=== PATIENT | female | born 1930 | race Caucasian/White ===

== ENCOUNTER 2016-10-03 16:44 | Inpatient (IN) ==
--- NOTE | 2016-10-03 17:08 | Emergency Department Note ---
Disposition Clinical Impression: NSTEMI (non-ST elevated myocardial infarction) Disposition: Admitted As Inpatient Condition: Fair Referrals: Lo Hooper CNP [Advanced Practice Nurse] - Forms: ED Satisfaction Letter Time of Disposition: 19:10 Weakness HPI - General Chief complaint: ED Weakness Stated complaint: weakness Time Seen by Provider: 10/03/16 16:49 Source: patient Limitations: no limitations Nursing Notes Reviewed: Yes Vital Signs Reviewed: Yes - History of Present Illness HPI Narrative: 86 year old female presents with a PMH significant for HTN presents today via ambulance for a 2 week history of generalized weakness. Patient is a poor historian. She states that she has also had dull left sided scapular pain. She states that her weakness is intermittent and that it is worse with exertion and relieved with rest. Occasionally she gets lightheaded but denies LOC. She has never felt like this previously. Denies SOB, chest pain, abdominal pain, anorexia, dysuria, fevers N/V/D. Pt Subjective Complaint: generalized weakness/fatigue Onset (ago): week(s) Duration: gradually worsening Location: generalized Migration: none Pain Severity: none Pain Scale: 4 Improves with: none Worsens with: exertion Associated symptoms: Denies: chest pain, diaphoresis, dysuria, fever/chills, nausea/vomiting, shortness of breath - Related Data Home Medications Medication Instructions Recorded Confirmed Atenolol [Tenormin] 12.5 mg PO DAILY 10/03/16 10/03/16 Multivitamin [Multi-Day Vitamins] 1 each PO DAILY 10/03/16 10/03/16 Allergies Allergy/AdvReac Type Severity Reaction Status Date / Time Amoxicillin Allergy Hives Verified 10/03/16 16:47 All systems ED: reviewed and negative except as stated. Past Medical History - Past Medical History Attestation: Yes The following information was validated with the patient. Source: patient Medical history: Reports: hypertension, other Psychiatric history: Reports: no psych history - Social History Smoking Status: Never smoker Alcohol use: Reports: none Drug use: Reports: unknown Physical Exam - General Limitations: no limitations General appearance: alert, in no apparent distress - Head Head exam: atraumatic, normocephalic, normal inspection - Eye Eye exam: Present: normal appearance, PERRL, EOMI - ENT ENT exam: normal exam, normal oropharynx, mucous membranes moist - Neck Neck exam: Present: normal inspection, full ROM, trachea midline - Chest Chest inspection: Present: normal inspection, symmetric chest wall rise - Respiratory Respiratory exam: Present: normal lung sounds bilaterally - Cardiovascular Cardiovascular exam: Present: regular rate, normal rhythm, normal heart sounds - Abdominal Exam Abdominal exam: Present: soft, Non-Tender. Absent: tenderness, distention, guarding, rebound, rigidity - Extremities Exam Extremities exam: Present: normal inspection, full ROM. Absent: tenderness, pedal edema - Back Exam Back exam: Present: normal inspection, full ROM, tenderness, paraspinal tenderness - Neurological Exam Neurological exam: Present: alert - Psychiatric Psychiatric exam: Present: normal affect, normal mood - Skin Skin exam: Present: warm, dry, intact, normal color Course Course Narrative: Patient seen and examined. Left-sided scapular tenderness as well as generalized weakness. No prior Cardiac history. Cardiopulmonary workup initiated. We will also get a urine analysis. - Reevaluation(s) Reevaluation #1: Troponin elevated at 0.55. 325 mg aspirin ordered. Will admit for NSTEMI. I discussed this patient with the device processing engineer Dr. Cortes . Recommends heparin drip, no Plavix. Coags were added. I spoke with hospitalist Adriana Angeles who has accepted patient for admission. Time: 19:08 Vital Signs Temperature 97.5 F L 10/03/16 16:45 Pulse Rate 75 10/03/16 16:45 Respiratory Rate 18 10/03/16 16:45 Blood Pressure 190/118 10/03/16 16:45 O2 Sat by Pulse Oximetry 98 10/03/16 16:45 Temperature 97.5 F L 10/03/16 16:45 Pulse Rate 75 10/03/16 16:45 Respiratory Rate 18 10/03/16 16:45 Blood Pressure 190/118 10/03/16 16:45 O2 Sat by Pulse Oximetry 99 10/03/16 17:13 Oxygen Delivery Oxygen Delivery Room Air Weakness - Medical Records Medical records reviewed: Yes I reviewed the patient's medical records. - Lab Data Lab results reviewed: Yes I reviewed the patient's lab results. Result diagrams: 10/03/16 17:28 10/03/16 17:28 Lab Results 10/03/16 10/03/16 10/03/16 Range/Units 17:28 17:28 17:28 WBC 6.9 (4.3-11.1) K/mcL RBC 4.30 (3.82-4.97) M/mcL Hgb 12.9 (11.5-15.4) g/dL Hct 41.4 (35.3-44.9) % MCV 96.3 (83.0-100.0) fL MCH 30.0 (28.0-33.3) pg MCHC 31.2 L (31.6-35.5) g/dL RDW 15.3 H (11.5-14.5) % Plt Count 235 (140-400) K/mcL MPV 9.9 (9.4-12.4) fL Immature Gran % 0.1 (0-4) % Seg Neutrophils % 54.3 % Lymphocytes % 38.3 % Monocytes % 6.3 % Eosinophils % 0.9 % Basophils % 0.1 % Neutrophils # 3.7 (1.6-8.9) K/mcL Lymphocytes # 2.6 (0.6-4.6) K/mcL Monocytes # 0.4 (0.0-1.3) K/mcL Eosinophils # 0.1 (0.0-0.6) K/mcL Basophils # 0.0 (0.0-0.2) K/mcL Sodium 139 (136-145) mEq/L Potassium 4.4 (3.5-4.5) mEq/L Chloride 103 (98-109) mEq/L Carbon Dioxide 30 H (19-29) mEq/L BUN 22 H (7-20) mg/dL Creatinine 0.81 (0.57-1.11) mg/dL Est GFR ( Amer) > 60 (> 60) Est GFR (Non-Af Amer) > 60 (> 60) BUN/Creatinine Ratio 27 H (6-26) Glucose 95 (70-99) mg/dL Calculated Osmolality 291 (280-300) Calcium 9.6 (8.6-10.8) mg/dL Phosphorus 3.0 (2.3-4.7) mg/dL Magnesium 1.9 (1.6-2.6) mg/dL Total Bilirubin 1.3 H (0.2-1.2) mg/dL AST 20 (5-34) Units/L ALT 10 (0-55) Units/L Alkaline Phosphatase 69 (38-126) Units/L Troponin I 0.55 H* (0-0.03) ng/mL Serum Total Protein 8.3 (6.0-8.3) g/dL Albumin 3.4 L (3.5-5.0) g/dL Globulin 4.9 H (2.4-3.5) g/dL Albumin/Globulin Ratio 0.7 L (1.1-2.2) TSH 3.792 (0.350-4.840) mcIU/mL - Radiology Data Radiology results reviewed: Yes I reviewed the patient's radiology results. Chest X-Ray 10/03/16 17:05 IMPRESSION: COPD with no acute abnormality. D/ / 10/03/2016 17:23:17 Daniel Barber MD / chaim Interpreting Provider: Daniel Barber MD - EKG Data EKG attestation: Yes I reviewed and interpreted this EKG. EKG results narrative: EKG done at 1642 shows normal sinus rhythm with a rate of 75 bpm. Mild J-point elevation noted in V2. Mild ST depression noted in 2, 3, aVF, V4 through the thighs. No axis. This appears unchanged from prior EKG done 01/24/2013. EKG done at 1808 shows normal sinus rhythm with a rate of 69 bpm. Mild J-point elevation noted in V2. Mild ST depression noted in V4 and V5, 2, 3, aVF. Attestation Statement - Attestation Attestation: I personally interviewed and examined this patient and my medical decision- making was reviewed with the Resident Physician, Dr. Farrell. I agree with the documented findings, disposition and treatment plan as described except to the extent set forth below. Patient is an 86-year-old white female who presents to emergency department today brought by family for concern for overwhelming generalized weakness but then worse with exertion and stating that she "just feels bad". Patient's very vague with her symptoms but she does complain of some dull aching that she feels over her left scapula. She denies any anterior chest pain pressure or heaviness, no diaphoresis, no shortness of breath, no abdominal pain or flank pain, no lightheadedness or syncope. Patient denies any prior cardiac history and actually denies any medical problems at all. Patient is in no acute distress on arrival and is hypertensive on arrival. I agree with patient's physical exam findings as documented. Patient's EKG showed no acute ischemic changes. Patient was connected to monitoring analyst and continuous pulse ox IV saline while established she was given aspirin and labs were obtained as well as chest x-ray. Patient's lab results we were notified by the lab as her troponin was significantly elevated at 0.55. Patient with normal renal function, normal H& H. Chest x-ray shows no acute process. Repeat EKG shows borderline ischemia in the lateral leads. No evidence of ST elevation. Patient again denies any chest pain but is complaining of the left scapular pain. Based on findings we contact cardiology case was discussed with Dr. Lazaro who recommends aspirin and heparin and will consult on the patient. We will speak with the hospitalist and the patient admitted for further evaluation and treatment. Patient's blood pressure improved at this time.
[2016-10-03 17:34] LABS: Basophils % 0.1 %; Eosinophils # 0.1 K/mcL (0.0-0.6); Eosinophils % 0.9 %; Hematocrit 41.4 % (35.3-44.9); Hemoglobin 12.9 g/dL (11.5-15.4); Immature Granulocytes % 0.1 % (0-4); Lymphocytes # 2.6 K/mcL (0.6-4.6); Lymphocytes % 38.3 %; Mean Corpuscular HGB Conc 31.2 g/dL (31.6-35.5); Mean Corpuscular Volume 96.3 fL (83.0-100.0); Mean Platelet Volume 9.9 fL (9.4-12.4); Monocytes # 0.4 K/mcL (0.0-1.3); Monocytes % 6.3 %; Neutrophils # 3.7 K/mcL (1.6-8.9); Platelet Count 235 K/mcL (140-400); Red Cell Distribution Width 15.3 % (11.5-14.5); Segmented Neutrophils % 54.3 %
[2016-10-03 17:48] LABS: Alanine Aminotransferase 10 Units/L (0-55); Albumin 3.4 g/dL (3.5-5.0); Albumin/Globulin Ratio 0.7 (1.1-2.2); Alkaline Phosphatase 69 Units/L (38-126); Aspartate Amino Transferase 20 Units/L (5-34); BUN/Creatinine Ratio 27 (6-26); Bilirubin,Total 1.3 mg/dL (0.2-1.2); Blood Urea Nitrogen 22 mg/dL (7-20); Calcium 9.6 mg/dL (8.6-10.8); Carbon Dioxide 30 mEq/L (19-29); Chloride 103 mEq/L (98-109); Globulin 4.9 g/dL (2.4-3.5); Glucose 95 mg/dL (70-99); Magnesium 1.9 mg/dL (1.6-2.6); Osmolality,Calculated 291 (280-300); Potassium 4.4 mEq/L (3.5-4.5); Sodium 139 mEq/L (136-145); Total Protein 8.3 g/dL (6.0-8.3); eGFR For African Americans > 60 (> 60); eGFR For Non-African Americans > 60 (> 60)
[2016-10-03] MEDS ORDERED: Aspirin Enteric Coated 325 MG Tablet PO STA (17:58)
[2016-10-03 18:08] LABS: Thyroid Stimulating Hormone 3.792 mcIU/mL (0.350-4.840)
[2016-10-03] MEDS ORDERED: *HR* Heparin 5,000 UNIT/ML VIAL IVP PRN ×2 (18:26)
[2016-10-03] MEDS ORDERED: *HR* Heparin 5,000 UNIT/ML VIAL IVP ONE (18:26)
[2016-10-03] MEDS ORDERED: Heparin 25,000 UNIT/500 ML D5W 25,000 UNIT/500 ML MLS IVC SCH (18:30)
[2016-10-03 19:03] LABS: INR 1.1; Prothrombin Time 11.9 Seconds (9.4-12.1)
[2016-10-03] MEDS ORDERED: Naloxone 0.4 MG/ML INJ IVP PRN (20:25)
[2016-10-03] MEDS ORDERED: Acetaminophen 325 MG TABLET PO PRN (20:29)
--- NOTE | 2016-10-03 20:31 | Internal Med History&Physical ---
<Jace Campbell - Last Filed: 10/03/16 20:26> Date of Encounter: 10/03/16 Time of Encounter: 20:26 Assessment and Plan (1) NSTEMI (non-ST elevated myocardial infarction) Current visit: Yes Status: Acute Presented fatigue and weakness, EKG showed ST depression in 2,3, AVF, V4. Initial trop 0.55. Cardio consulted in ED and recommended Heparin gtt. ASA given on arrival. Asymptomatic and denies chest pain. Cycle trop, check echo, defer stress test to cardio. Monitor on tele. NPO after Mn in the event of cardio wanting a cath or stress. No known hx of CAD. BNP, Lipid panel, hgba1c pending (2) HTN (hypertension) Current visit: Yes Status: Acute Per hx BP controlled. Continue home medications and titrate PRN. Qualifiers: Hypertension type: essential hypertension Qualified Code(s): I10 - Essential (primary) hypertension (3) Lower back pain Current visit: Yes Status: Acute C/O lower back pain. Patient suspects secondary to ED cot. NO n/t, bowel or bladder incontinence. Trial lidoderm patch period. Consider further imaging/ workup if symptoms persist. Qualifiers: Chronicity: acute Back pain laterality: left Sciatica presence: without sciatica Qualified Code(s): M54.5 - Low back pain (4) DVT prophylaxis Current visit: Yes Status: Acute heparin gtt. Internal Medicine - H&P: HPI Chief complaint: fatigue Admitted From: Home Plans for Post Hospital Care: Home History of present illness: Ms. France is a 86 year old female PMH of HTN; presented to [facility] with cc fatigue and was found to have an NTEMI with a troponin of 0.55. Heparin gtt started in ED and she was admitted for further evaluation. Information obtained from chart review and patient report. Per patient she reports fatigue and dizziness over the past couple of day; non-specific fatigue, no N/V no SOB. Back pain noted; patient thinks it due to cot in ED. Past Med Surg Social Fam HX - Past Medical History Medical history: hypertension, other Psychiatric history: no psych history - Past Surgical History Surgical History: non-contributory - Social History Smoking Status: Never smoker Alcohol use: none Drug use: unknown - Additional Family History Additional family history: reviewed and non contributory Internal Medicine - H&P: Meds Atenolol [Tenormin] 12.5 mg PO DAILY 10/03/16 [History] Multivitamin [Multi-Day Vitamins] 1 each PO DAILY 10/03/16 [History] Allergies Amoxicillin Allergy (Verified 10/03/16 16:47) Hives All Systems PM: A 10-system review of systems was performed and is negative for pertinent findings except as documented above in the HPI. - Constitutional Constitutional: fatigue, weakness, no chills, no fever(s), no night sweats - EENT Eyes: no change in vision, no discharge, no pain, no photophobia Ears: no ear discharge, no ear pain, no tinnitus Nose, mouth and throat: no dysphagia, no nasal discharge, no neck pain, no sore throat - Cardiovascular Cardiovascular ROS IM: no chest pain, no diaphoresis, no dyspnea, no lightheadedness, no palpitations, no syncope - Respiratory Respiratory: no cough, no dyspnea, no wheezing, no excessive phlegm production - Gastrointestinal Gastrointestinal: no abdominal pain, no diarrhea, no hematemesis, no hematochezia, no melena, no nausea, no vomiting - Genitourinary Genitourinary: no change in urinary stream, no dysuria, no flank pain, no hematuria - Musculoskeletal Musculoskeletal ROS IM: back pain, no numbness, no tingling Additional comments: Lower back pain - Integumentary Integumentary IM: no rash, no unusual bruising - Neurological Neurological ROS: no confusion, no convulsions, no focal weakness, no numbness, no tingling, no tremor(s) - Hematologic/Lymphatic Hematologic/Lymphatic: no easy bruising - Constitutional Vitals: Temp Pulse Resp BP Pulse Ox 97.5 F L 57 15 150/84 97 10/03/16 20:16 10/03/16 20:16 10/03/16 20:16 10/03/16 20:16 10/03/16 20:16 - Head Head exam: Present: atraumatic, normocephalic - Eye Eye exam: Present: PERRL, conjuntiva pink, sclera anicteric Pupils: Present: PERRL - Neck Neck exam general surgery: Present: supple, trachea midline. Absent: lymphadenopathy - Respiratory Respiratory exam: Present: CTAB. Absent: accessory muscle use, rales, rhonchi, wheezes - Cardiovascular Cardiovascular exam: Present: RRR, +S1, +S2. Absent: diastolic murmur, gallop, rubs, systolic murmur - GI/Abdominal GI/Abdominal exam: Present: normal bowel sounds, soft, no peritoneal signs. Absent: distended, tenderness - Extremities Exam Extremities exam: Present: warm, radial pulses palpable and symetrical. Absent : calf tenderness, cyanotic, pedal edema - Neurological Exam Neurological exam: Present: CN II-XII intact, oriented X3, no focal deficits. Absent: pronater drift, facial droop, speech deficit - Skin Skin exam: Present: dry, intact Internal Med - H&P Results - Labs CBC & Chem 7: 10/03/16 17:28 10/03/16 17:28 <Thomas Sheldon - Last Filed: 10/04/16 03:33> Date of Encounter: 10/03/16 Internal Medicine - H&P: HPI History of present illness: Ms. France is a 86 year old female Past Med Surg Social Fam HX - Past Medical History Medical history: other (COPD) All Systems PM: A 10-system review of systems was performed and is negative for pertinent findings except as documented above in the HPI. - Constitutional Vitals: Temp Pulse Resp BP Pulse Ox 97.6 F 72 15 126/71 97 10/04/16 00:24 10/04/16 00:24 10/04/16 00:24 10/04/16 00:24 10/04/16 00:24 Internal Med - H&P Results - Labs CBC & Chem 7: 10/03/16 17:28 10/03/16 17:28 Labs: Cardiac Enzymes 10/04/16 Range/Units 00:59 Troponin I 0.73 H* (0-0.03) ng/mL Urine 10/03/16 Range/Units 21:30 Urine Color Yellow (Yellow) Urine Clarity Cloudy A (Clear) Urine pH 7.0 (5.0-8.0) pH Units Ur Specific [place] 1.020 (1.010-1.025) Urine Protein Negative (Neg-Trace) mg/dL Urine Glucose (UA) Normal (Normal) mg/dL - EKG Data -: EKG Interpreted by Myself EKG shows normal: sinus rhythm (the ST changes are imperceptible and arguable) - Diagnostic Studies Chest x-ray Status: image reviewed by me - Attending Attestation I personally interviewed examined this patient and my medical decision-making was reviewed with the Advanced Nurse Practitioner. I agree with the documented findings, disposition and treatment plan as described. Thomas Sheldon MD, MPH Hospitalist
[2016-10-03 21:51] LABS: Bilirubin,Urine Negative (Negative); Blood,Urine Negative (Negative); Clarity,Urine Cloudy (Clear); Color,Urine Yellow (Yellow); Glucose,Urine (UA) Normal (Normal); Ketones,Urine Negative (Negative); Leukocyte Esterase,Urine Small (Negative); Nitrite,Urine Negative (Negative); Protein,Urine Negative (Neg-Trace); Urobilinogen,Urine Normal (Normal)
[2016-10-03 21:53] LABS: Bacteria,Urine None Seen per hpf (None-Few); Hyaline Casts,Urine None Seen per lpf (None-Few); Squamous Epithelial Cell,Urine Many per lpf (None-Few); WBC,Urine 0-3 per hpf (0-3)
[2016-10-03 22:02] LABS: RBC,Urine 0-3 per hpf (0-3)
[2016-10-04] MEDS ORDERED: 0.9 % Sodium Chloride 1,000 ML IVC SCH (00:01)
[2016-10-04 01:35] LABS: Hemoglobin A1C 5.6 %
[2016-10-04 08:33] LABS: Hematocrit 38.9 % (35.3-44.9); Hemoglobin 12.4 g/dL (11.5-15.4); Mean Corpuscular HGB Conc 31.9 g/dL (31.6-35.5); Mean Corpuscular Hemoglobin 30.5 pg (28.0-33.3); Mean Corpuscular Volume 95.8 fL (83.0-100.0); Mean Platelet Volume 9.9 fL (9.4-12.4); Platelet Count 213 K/mcL (140-400); Red Blood Count 4.06 M/mcL (3.82-4.97); Red Cell Distribution Width 15.4 % (11.5-14.5)
[2016-10-04 08:38] LABS: Alanine Aminotransferase 8 Units/L (0-55); Albumin 3.1 g/dL (3.5-5.0); Albumin/Globulin Ratio 0.7 (1.1-2.2); Alkaline Phosphatase 64 Units/L (38-126); Aspartate Amino Transferase 19 Units/L (5-34); BUN/Creatinine Ratio 22 (6-26); Bilirubin,Total 1.5 mg/dL (0.2-1.2); Blood Urea Nitrogen 17 mg/dL (7-20); Calcium 9.1 mg/dL (8.6-10.8); Carbon Dioxide 26 mEq/L (19-29); Chloride 103 mEq/L (98-109); Glucose 90 mg/dL (70-99); Osmolality,Calculated 283 (280-300); Potassium 4.1 mEq/L (3.5-4.5); Total Protein 7.7 g/dL (6.0-8.3); eGFR For African Americans > 60 (> 60); eGFR For Non-African Americans > 60 (> 60)
[2016-10-04 08:39] LABS: Chol/HDL Ratio 4.9 (0-4.9); Cholesterol 191 mg/dL (< 200); Globulin 4.6 g/dL (2.4-3.5); HDL Cholesterol 39 mg/dL (40-59); LDL Cholesterol,Calculated 129 mg/dL (0-99); Sodium 136 mEq/L (136-145); Triglycerides 113 mg/dL (< 150)
--- NOTE | 2016-10-04 09:23 | Electrocardiograph Report ---
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
--- NOTE | 2016-10-04 09:38 | Internal Med Progress Note ---
<Daniel Upton - Last Filed: 10/04/16 13:07> Date of Encounter: 10/04/16 Time of Encounter: 09:32 - Assessment and plan (1) NSTEMI (non-ST elevated myocardial infarction) Current Visit: Yes Status: Acute Assessment and plan: Cards is following. "ekg 2,3, Avf ST depression." trop 0.55, 0.73, 0.66. BNP 220.' echo no abnormal findings. cardio will cath today. CXR no abnormal findings. MACHELLE 4. continue heparin. Start Statin. (2) HTN (hypertension) Current Visit: Yes Status: Acute Assessment and plan: continue home meds. and continue monitor Qualifiers: Hypertension type: essential hypertension Qualified Code(s): I10 - Essential (primary) hypertension (3) Lower back pain Current Visit: Yes Status: Acute Assessment and plan: continue to monitor pain. Qualifiers: Chronicity: acute Back pain laterality: left Sciatica presence: without sciatica Qualified Code(s): M54.5 - Low back pain (4) DVT prophylaxis Current Visit: Yes Status: Acute Assessment and plan: continue heparin - Subjective Interval history: Ms Mills is a 86 year old female on day 1 of admission. She presented with fatigue and weakness, and a feeling of "indigestion". she denies chest pain, diaphoresis. 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 >65, HLD, HTN, Both parents of heart disease, +trops = MACHELLE 4. Patient also has complaints of back pain, she thinks its from the cot. Pain is described as muscle sore pain that started on saturday on the left side. - Constitutional Vitals: Temp Pulse Resp BP Pulse Ox 97.5 F L 63 18 127/72 96 10/04/16 04:09 10/04/16 04:09 10/04/16 04:09 10/04/16 04:09 10/04/16 08:53 General appearance: Present: A&O X 3 - Head Head exam: Present: atraumatic, normocephalic - Respiratory Respiratory exam: Present: CTAB. Absent: accessory muscle use, rales, rhonchi, wheezes - Cardiovascular Cardiovascular exam: Present: RRR, +S1, +S2. Absent: diastolic murmur, gallop, rubs, systolic murmur - GI/Abdominal GI/Abdominal exam: Present: normal bowel sounds, soft, no peritoneal signs. Absent: distended, tenderness - Extremities Exam Extremities exam: Present: radial pulses palpable and symetrical. Absent: pedal edema - Back Exam Additional comments: Lateral Left back below rib cage soreness, no tenderness upon palpation or elicited pain. - Neurological Exam Neurological exam: Present: alert, normal gait, oriented X3 - Skin Skin exam: Present: dry, intact Internal Medicine: Result - Labs CBC & Chem 7: 10/04/16 07:55 10/04/16 07:55 Labs: Short CBC 10/04/16 Range/Units 07:55 WBC 6.7 (4.3-11.1) K/mcL Hgb 12.4 (11.5-15.4) g/dL Hct 38.9 (35.3-44.9) % Plt Count 213 (140-400) K/mcL BMP 10/04/16 07:55 Sodium 136 Potassium 4.1 Chloride 103 Carbon Dioxide 26 BUN 17 Creatinine 0.78 Glucose 90 Calcium 9.1 Cardiac Enzymes 10/04/16 10/04/16 Range/Units 00:59 07:55 Troponin I 0.73 H* 0.66 H* (0-0.03) ng/mL Liver Function 10/04/16 Range/Units 07:55 Total Bilirubin 1.5 H (0.2-1.2) mg/dL AST 19 (5-34) Units/L ALT 8 (0-55) Units/L Alkaline Phosphatase 64 (38-126) Units/L Albumin 3.1 L (3.5-5.0) g/dL Urine 10/03/16 Range/Units 21:30 Urine Color Yellow (Yellow) Urine Clarity Cloudy A (Clear) Urine pH 7.0 (5.0-8.0) pH Units Ur Specific [place] 1.020 (1.010-1.025) Urine Protein Negative (Neg-Trace) mg/dL Urine Glucose (UA) Normal (Normal) mg/dL - ABG Interpretation ABG results: PT/INR, D-dimer PT 11.9 Seconds (9.4-12.1) 10/03/16 17:28 - Impressions Impressions Echocardiogram 10/04/16 20:31 Impressions: Sinus arrhythmia. LVEF 60%. Normal left ventricular size and systolic function. Indeterminate left ventricular diastolic function. Normal right ventricular size and function. Mild mitral regurgitation. Mild tricuspid regurgitation. No pulmonary hypertension. Left Ventricular Wall Motion: Rest Echo Findings All wall segments showed normal motion. Findings: Study Quality * Technically adequate exam. ECG Findings * Normal sinus rhythm and possible sinus arrhythmia. Left Ventricle * LVEF 60%. * Normal LV chamber size, wall thickness and function. * Indeterminate diastolic function. Aorta * Normally sized aortic root. Aortic Valve * No aortic regurgitation. * Trileaflet aortic valve. * Normal aortic valve structure. * No aortic stenosis. Mitral Valve * Normal mitral valve structure. * No mitral stenosis. * Mild mitral regurgitation. Tricuspid Valve * Normal tricuspid valve structure. * Mild tricuspid regurgitation. * Estimated RA pressure is 3 mmHg. * Estimated RVSP is 23 mmHg. * No pulmonary hypertension. Pulmonic Valve * Pulmonic valve is not well visualized. * No pulmonic stenosis. * No pulmonic regurgitation. Pulmonary Artery * Pulmonary artery not well visualized. Left Atrium * Severely dilated left atrium. Right Atrium * Normal right atrial size. Right Ventricle * Normal right ventricular structure and function. Interatrial Septum * No evidence of PFO by color Doppler. Pericardium * There is no pericardial effusion present. IVC * Normal IVC dimensions and inspiratory collapse. Consult Discharge Plan - Plan Referrals: Fernanda Gaines MD [Partnered Physician] - 10/12/16 10:00 am (will be seen by Dr. Pang [facility]) <Mariella Mulliganju T - Last Filed: 10/04/16 16:06> Date of Encounter: 10/04/16 - Constitutional Vitals: Temp Pulse Resp BP Pulse Ox 97.5 F L 70 16 147/78 2 10/04/16 14:50 10/04/16 14:50 10/04/16 14:50 10/04/16 14:50 10/04/16 14:50 Internal Medicine: Result - Labs CBC & Chem 7: 10/04/16 07:55 10/04/16 07:55 Labs: Short CBC 10/04/16 Range/Units 07:55 WBC 6.7 (4.3-11.1) K/mcL Hgb 12.4 (11.5-15.4) g/dL Hct 38.9 (35.3-44.9) % Plt Count 213 (140-400) K/mcL BMP 10/04/16 07:55 Sodium 136 Potassium 4.1 Chloride 103 Carbon Dioxide 26 BUN 17 Creatinine 0.78 Glucose 90 Calcium 9.1 Cardiac Enzymes 10/04/16 10/04/16 Range/Units 00:59 07:55 Troponin I 0.73 H* 0.66 H* (0-0.03) ng/mL Liver Function 10/04/16 Range/Units 07:55 Total Bilirubin 1.5 H (0.2-1.2) mg/dL AST 19 (5-34) Units/L ALT 8 (0-55) Units/L Alkaline Phosphatase 64 (38-126) Units/L Albumin 3.1 L (3.5-5.0) g/dL - ABG Interpretation ABG results: PT/INR, D-dimer PT 11.9 Seconds (9.4-12.1) 10/03/16 17:28 - Impressions Impressions Echocardiogram 10/04/16 20:31 Impressions: Sinus arrhythmia. LVEF 60%. Normal left ventricular size and systolic function. Indeterminate left ventricular diastolic function. Normal right ventricular size and function. Mild mitral regurgitation. Mild tricuspid regurgitation. No pulmonary hypertension. Left Ventricular Wall Motion: Rest Echo Findings All wall segments showed normal motion. Findings: Study Quality * Technically adequate exam. ECG Findings * Normal sinus rhythm and possible sinus arrhythmia. Left Ventricle * LVEF 60%. * Normal LV chamber size, wall thickness and function. * Indeterminate diastolic function. Aorta * Normally sized aortic root. Aortic Valve * No aortic regurgitation. * Trileaflet aortic valve. * Normal aortic valve structure. * No aortic stenosis. Mitral Valve * Normal mitral valve structure. * No mitral stenosis. * Mild mitral regurgitation. Tricuspid Valve * Normal tricuspid valve structure. * Mild tricuspid regurgitation. * Estimated RA pressure is 3 mmHg. * Estimated RVSP is 23 mmHg. * No pulmonary hypertension. Pulmonic Valve * Pulmonic valve is not well visualized. * No pulmonic stenosis. * No pulmonic regurgitation. Pulmonary Artery * Pulmonary artery not well visualized. Left Atrium * Severely dilated left atrium. Right Atrium * Normal right atrial size. Right Ventricle * Normal right ventricular structure and function. Interatrial Septum * No evidence of PFO by color Doppler. Pericardium * There is no pericardial effusion present. IVC * Normal IVC dimensions and inspiratory collapse. - Attending Attestation I examined this patient and my medical decision-making was reviewed with the Resident Physician on 10/04/16. I agree with the documented findings, disposition and treatment plan as described except to the extent set forth below. 86 F,previously healthy, independent of ADLS and IADLS. Admitted and being managed for NSTEMI Seen s/p [facility] with COOPER to OM Denies new complains Still having heart burn Physical exam: VSS, not in any form of distress, laying flat, TAB, HS S1, S1, regularly irregular, no m/g/r, abdomen is being, R wrist dressing clean and dry , radial pulse present, wellperfused R hand, no pedal edema labs and imaging reviewed A/P NSTEMI: Continue DAPT: ECHO with preserved EF, continue Lipitor, ACEI, BB BP is controlled Rest of details as in resident physician's documentation
--- NOTE | 2016-10-04 10:02 | Cardiology Consult Note ---
Date of Encounter: 10/04/16 Time of Encounter: 10:00 Assessment and Plan (1) NSTEMI (non-ST elevated myocardial infarction) Current Visit: Yes Status: Acute Troponins 0.55, 0.73, 0.66, associated with weakness/fatigue and intermittent left sided mid back pain over the past 2 days. Troponin elevation also in setting of accelerated hypertension on presentation with BP 190/118, now improved. UA also reveals small amount of leuk. esterase with culture pending. On heparin gtt, Statin and BB. EKG shows ST depression in leads III and aVF. NSTEMI vs. demand ischemia. Echo shows EF 60% with normal wall motion. Discussed options of LHC vs. medical management. R/B/A to both discussed. Pt and family prefer to proceed with LHC to further evaluate. LHC today. Continue to follow. (2) HTN (hypertension) Current Visit: Yes Status: Acute Elevated on admission 190/118, now improved. Continue Atenolol, adjust/add antihypertensives as necessary. Qualifiers: Hypertension type: essential hypertension Qualified Code(s): I10 - Essential (primary) hypertension Discussion w patient/family: The assessment and plan as outlined above was discussed with the patient and/or family members who expressed understanding and agreement. All questions were answered. Thank you for involving us in the care of your patient. Please call with any questions. I will discuss all the above with Dr. Ibrahima Lazaro and make changes as necessary. History of Present Illness Consult date: 10/04/16 Requesting physician: Thomas Sheldon Consult reason: NSTEMI Chief complaint: fatigue, weakness, back pain History of present illness: Ms. France is a 86 year old female with PMH of HTN; presented to [facility] with cc fatigue and was found to have elevated troponins--0.55, 0.73, 0.66 Per patient she reports fatigue and dizziness over the past couple of day along with left sided mid back pain that has been intermittent. No cardiac hx. Denies chest pain. Echo resulted--EF 60%, normal wall motion, mild MR/TR. BP was 190/118 on admission, now improved. Reports being active, does all her own cleaning and cooking. Past Med Surg Social Fam HX - Past Medical History Medical history: hypertension, other (COPD) Psychiatric history: no psych history - Past Surgical History Surgical History: non-contributory - Social History Smoking Status: Never smoker Smokeless Tobacco Status: No Alcohol use: none Drug use: unknown Medications and Allergies Atenolol [Tenormin] 12.5 mg PO DAILY 10/03/16 [History] Multivitamin [Multi-Day Vitamins] 1 each PO DAILY 10/03/16 [History] Allergies Amoxicillin Allergy (Verified 10/03/16 16:47) Hives All Systems Review: A 10-system review of systems was performed and is negative for pertinent findings except as documented above in the HPI. - Constitutional Constitutional: fatigue, weakness - Cardiovascular Cardiovascular: as per HPI Physical Examination Vital Signs, Last 4 Hours Pulse Ox 10/04/16 08:53 96 Vital Signs Temp Pulse Resp BP Pulse Ox 10/04/16 08:53 96 10/04/16 04:09 97.5 F L 63 18 127/72 98 10/04/16 00:24 97.6 F 72 15 126/71 97 10/03/16 20:16 97.5 F L 57 15 150/84 97 10/03/16 19:42 18 139/103 10/03/16 17:13 99 10/03/16 16:45 97.5 F L 75 18 190/118 98 Intake and Output 10/03/16 10/04/16 10/04/16 23:59 07:59 15:59 Intake Total 98 / 98 112 / 112 Output Total 600 / 600 300 / 300 Balance -600 / -600 -202 / -202 112 / 112 Intake: IV Fluids 98 / 98 112 / 112 Heparin 25,000 UNIT/500 98 / 98 112 / 112 ML D5W 25,000 unit In 500 ml @ 12 UNIT/KG/HR 15. 785 mls/hr IVC .Q24H [facility] Rx#:[id number] Output: Urine 600 / 600 300 / 300 Other: Meal NPO Percent of Meal Consumed 0% Stool Characteristics Normal for Patient # Voids 1 Weight 66.1 kg General: Conversant, No Apparent Distress HEENT: Atraumatic, Normocephaly, Mucus Membranes Moist Neck: No JVD, Normal carotid pulses Cardiac: Reg Rate and Rhythm, Normal S1 and S2, No Murmur Lungs: Normal Breath Sounds, No Wheeze, Rales, Rhonchi Neuro: Alert and responsive, No focal deficits noted Abdomen: Soft, Non-Tender Skin: No rashes noted on visualized skin Musculoskeletal: No Chest Wall Tenderness Extremities: No Clubbing, No Cyanosis, No Edema, Normal Pulses Results 10/04/16 07:55 10/04/16 07:55 Lab Results 10/04/16 10/04/16 10/04/16 00:59 00:59 07:55 WBC 6.7 Hgb 12.4 Hct 38.9 Plt Count 213 APTT 68.5 H D Sodium Potassium Chloride Carbon Dioxide BUN Creatinine Glucose Calcium Total Bilirubin AST ALT Alkaline Phosphatase Troponin I 0.73 H* B-Natriuretic Peptide 10/04/16 10/04/16 10/04/16 07:55 07:55 07:55 WBC Hgb Hct Plt Count APTT Sodium 136 Potassium 4.1 Chloride 103 Carbon Dioxide 26 BUN 17 Creatinine 0.78 Glucose 90 Calcium 9.1 Total Bilirubin 1.5 H AST 19 ALT 8 Alkaline Phosphatase 64 Troponin I 0.66 H* B-Natriuretic Peptide 220 H 10/04/16 07:55 WBC Hgb Hct Plt Count APTT 70.9 H Sodium Potassium Chloride Carbon Dioxide BUN Creatinine Glucose Calcium Total Bilirubin AST ALT Alkaline Phosphatase Troponin I B-Natriuretic Peptide Impressions Chest X-Ray 10/03/16 17:05 IMPRESSION: COPD with no acute abnormality. D/ / 10/03/2016 17:23:17 Daniel Barber MD / chaim Interpreting Provider: Danile Barber MD Echocardiogram 10/04/16 20:31 Impressions: Sinus arrhythmia. LVEF 60%. Normal left ventricular size and systolic function. Indeterminate left ventricular diastolic function. Normal right ventricular size and function. Mild mitral regurgitation. Mild tricuspid regurgitation. No pulmonary hypertension. Left Ventricular Wall Motion: Rest Echo Findings All wall segments showed normal motion. Findings: Study Quality * Technically adequate exam. ECG Findings * Normal sinus rhythm and possible sinus arrhythmia. Left Ventricle * LVEF 60%. * Normal LV chamber size, wall thickness and function. * Indeterminate diastolic function. Aorta * Normally sized aortic root. Aortic Valve * No aortic regurgitation. * Trileaflet aortic valve. * Normal aortic valve structure. * No aortic stenosis. Mitral Valve * Normal mitral valve structure. * No mitral stenosis. * Mild mitral regurgitation. Tricuspid Valve * Normal tricuspid valve structure. * Mild tricuspid regurgitation. * Estimated RA pressure is 3 mmHg. * Estimated RVSP is 23 mmHg. * No pulmonary hypertension. Pulmonic Valve * Pulmonic valve is not well visualized. * No pulmonic stenosis. * No pulmonic regurgitation. Pulmonary Artery * Pulmonary artery not well visualized. Left Atrium * Severely dilated left atrium. Right Atrium * Normal right atrial size. Right Ventricle * Normal right ventricular structure and function. Interatrial Septum * No evidence of PFO by color Doppler. Pericardium * There is no pericardial effusion present. IVC * Normal IVC dimensions and inspiratory collapse. Active Medications Acetaminophen (Tylenol) 650 mg PO Q6HR PRN PRN Reason: Mild Pain (1-3) Stop: 04/04/17 20:30 Atenolol (Tenormin) 12.5 mg PO DAILY TEN Stop: 04/05/17 09:01 Last Admin: 10/04/16 08:46 Dose: 12.5 mg Atorvastatin Calcium (Lipitor) 80 mg PO HS TEN Stop: 04/05/17 21:01 Calcium Carbonate (Tums) 1,000 mg PO Q4HR PRN; Protocol PRN Reason: Heartburn Stop: 04/04/17 21:31 Last Admin: 10/03/16 22:24 Dose: 1,000 mg Heparin Sodium (Porcine) (Heparin) 3,900 unit 60 unit/kg (3900 unit) IVP Q6HR PRN PRN Reason: SEE COMMENTS Stop: 04/04/17 18:27 Heparin Sodium (Porcine) (Heparin) 2,000 unit 30 unit/kg (2000 unit) IVP Q6H PRN PRN Reason: SEE COMMENTS Stop: 04/04/17 18:27 Heparin Sodium/Dextrose (Heparin 25,000 Unit/500 Ml D5w) 25,000 unit in 500 mls @ 15.785 mls/hr IVC .Q24H TEN; 12 UNIT/KG/HR PRN Reason: Protocol Stop: 04/04/17 18:31 Last Titration: 10/04/16 08:42 Dose: 11.99 unit/kg/hr, 15.785 mls/hr Sodium Chloride (0.9 % Sodium Chloride) 1,000 mls @ 50 mls/hr IVC .Q20H TEN Stop: 04/05/17 00:02 Last Admin: 10/04/16 00:14 Dose: 50 mls/hr Lidocaine HCl (Lidoderm 5% Patch) 1 each TP DAILY TEN Stop: 04/05/17 09:01 Last Admin: 10/04/16 08:50 Dose: 1 each Naloxone HCl (Narcan) 0.4 mg IVP Q2MIN PRN PRN Reason: Opioid Reversal Stop: 04/04/17 20:26 - Imaging and Cardiology Echo: report reviewed - EKG Interpretation EKG results cardiology: personally reviewed (Sinus arrhythmic, ST changes in leads III and aVF), other (12 hr tele AVG HR 67, sinus arrhythmia.) Consult Discharge Plan - Plan Referrals: Lo Hooper [facility] [Primary Care Provider] - (web request sent on 10/04/16 )
--- NOTE | 2016-10-04 10:18 | Pre-Sedation Evaluation ---
Pre-sedation evaluation - Pre-sedation checklist Date of procedure: 10/04/16 Procedure: Heart Cath Recent Vitals: Last Vital Signs Temp 97.5 F L 10/04/16 04:09 Pulse 63 10/04/16 04:09 Resp 18 10/04/16 04:09 BP 127/72 10/04/16 04:09 Pulse Ox 96 10/04/16 08:53 H&P (including ROS) documented in medical record: Yes Previous reaction to sedatives/anesthetics: No Dietary Status: NPO after Midnight Dentition: dentures removed ASA Classification *see protocol: CLASS II-Mild systemic disease Plan of Care: Pt appropriate candidate for procedure/moderate/conscious sedation , Risks/benefits of procedure/sedation discussed w/ patient/family
[2016-10-04] MEDS ORDERED: Heparin 1,000 UNITS/500 mL NS 500 ML ONE (10:29)
[2016-10-04] MEDS ORDERED: *HR* Heparin 10,000 UNIT/10 ML VIAL ONE (10:29)
[2016-10-04] MEDS ORDERED: Nitroglycerin 1,000 MCG/10 ML VIAL IV ONE ×2 (10:29→10:32)
[2016-10-04] MEDS ORDERED: 0.9 % Sodium Chloride 1,000 ML ONE ×2 (10:29→10:30)
[2016-10-04] MEDS ORDERED: Verapamil 5 MG/2 ML VIAL ONE (10:30)
[2016-10-04] MEDS ORDERED: *HR* Midazolam HCl 2 MG/2 ML VIAL ONE (10:51)
[2016-10-04] MEDS ORDERED: *HR* FentaNYL (PF) 100 MCG/2 ML VIAL ONE (10:52)
[2016-10-04] MEDS ORDERED: Tirofiban 5 MG/100ML 5 MG/100 ML BAG IV ONE (11:21)
[2016-10-04] MEDS ORDERED: Tirofiban 12.5 MG/250ML 12.5 MG/250 ML BAG IVC SCH (11:45)
--- NOTE | 2016-10-04 14:47 | Invasive Diagnostic Lab ---
Name: Lina France Date of Study: 10/04/2016 Date: 1930 Ht: 160.0 cm /63.0 in Medical Record#: [id number] Age: 86 Wt: 66. 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 Recommendations: Optimal medical therapy of patient's disease. Aggressive risk factor modification. Patient being referred for cardiac rehab. History/Risk Factors: NSTEMI Hypertension Procedure Access obtained in the right Femoral artery by percutaneous puncture Patient had successful PTCA/Drug-Eluting Stent placement in the OM. Complications: None, None Contrast: Isovue 109ml Closure Device: Manual Compression, sheath to be pulled in holding room when appropriate Hemodynamics: Pressures Site Systolic/ A Wave Diastolic/ V Wave End Diastolic/ Mean HR AO 105 51 74 52 AO 97 55 76 66 LV 96 11 22 60 AO 95 43 66 59 AO 95 45 66 57 AO 89 45 65 60 AO 91 46 66 59 LV Ventriculography Ejection Method: LV Gram Ejection Fraction: 65% Wall Motion: LOPEZ Anterobasal Normal Anterolateral Normal Apical: Normal Inferoapical Normal Inferobasal Normal Coronary Dominance: right Lesion Findings/Interventions * Left Main Coronary Artery There is a 40% stenosis in the LMCA. * Left Anterior Descending There is a 60% stenosis in the Proximal LAD. There is a 70% stenosis in the Mid LAD with mid distal LAD small and diffusely diseased. * Circumflex There is a 28 mm long, 99% stenosis in the 1st Marginal. The lesion has a MACHELLE flow of 2. An intervention was performed on the 1st Marginal with a final stenosis of 0%. There were no lesion complications. The final MACHELLE flow was 3. * Right Coronary Artery There is a 50% stenosis in the Proximal RCA. There is a 50% stenosis in the Distal RCA. Interventional Device(s) Vessel Segment Type Name Diameter (mm) Length (mm) 1st Marginal Balloon Emerge Monorail 2 20 1st Marginal Drug Eluting Stent Synergy 2.25 28 Updated by Elisa Guan RN on 10/04/2016 1:58:53 PM Slim Arredondo MD, FACC electronically signed on 10/04/2016 2:42:07 PM with status of Final
[2016-10-04] MEDS: Aspirin Enteric Coated 81 MG Tablet PO SCH (15:07)
--- NOTE | 2016-10-04 15:07 | Invasive Diagnostic Lab Proc ---
Name: Lina France Date of Study: 10/04/2016 Date: 1930 Ht: 63.0in Medical Record#: [id number] Age: 86 Wt: 145.51lb Gender: Female BSA: 1.69 Order #: [id number] BMI: 25.78 Physicians Procedure Physician: Slim Arredondo MD, FACC Referring MD: Lo Hooper, MAYTE Referring MD: Staff Name Position Time In Gerry Ayers RT (R) Scrub 10:55 AM Francisca Rayo RN Turbinated Bone Grinder 10:55 AM Joleen Bo RN 10:55 AM Joleen Bo RN Turbinated Bone Grinder 10:56 AM Zia Mckeon RN Monitor 10:56 AM Elisa Curry RN 10:56 AM Elisa Curry RN Monitor 10:56 AM Indications Indication Non-Stemi Procedures Performed Procedure L HRT ARTERY/VENTRICLE ANGIO PRQ CARD BM STENT W/ANGIO 1 VSL Pre-Procedure Checklist Informed consent is complete signed and on chart. H&P is on chart. ID band is on and ID verified with patient. Patient NPO for procedure The procedure was described for the patient and questions were answered. Blood Pressure: 158/100 ECG is on chart. Rhythm: Sinus Arrhythmia Plan of Care Patient will tolerate the procedure without complications. Adequate level of comfort will be maintained. Hemodynamics will remain stable Patient will recover from procedure without complications. Respiratory function will be maintained. Cardiac rhythm will remain stable. Patient temperature will be maintained. Patient and/or family have verbalized understanding of the procedure. Patient Education Chief Complaint/Reason for Test: Cardiac Cath Developmental Category: Geriatric (65+ years) Developmentally Appropriate for Age: Yes Learning Barriers: None Education Needs: Procedure Education Method: Verbal Information Taught: Cardiac Cath Educational Evaluation: Able to repeat information Intravenous Access Time IV Size Location DC'd Fluid/Drip Rate Units RN 10:53 AM 20g 1 1/4" Peripheral-Lock On Arrival Rt Arm 0.9NaCl 25 mls/hr Sugey Lewis RT (R) Allergies Amoxicillin Clarithromycin PENICILLINS BIAXIN,AMOXICILLIN Penicillin SULFA (sulfonamide) Vital Signs Time BP (mmHg) HR (bpm) O2 Sat. RR (bpm) LOC 10:57 AM / % 5 = Fully awake and oriented or at pre-proc level 10:30 AM 127 / 72 63 96 % 5 = Fully awake and oriented or at pre-proc level 10:57 AM / % 4 = Oriented but drowsy 11:12 AM / % 4 = Oriented but drowsy 10:51 AM 158 / 100 65 99 % 16 10:57 AM 165 / 82 68 100 % 15 11:02 AM 163 / 76 55 99 % 14 11:07 AM 146 / 84 54 100 % 18 11:12 AM 128 / 63 80 99 % 12 11:16 AM 111 / 63 68 94 % 16 11:21 AM 100 / 64 59 94 % 16 11:26 AM 107 / 59 59 98 % 14 11:31 AM 105 / 57 52 96 % 22 11:37 AM 129 / 72 58 98 % 13 11:45 AM 141 / 91 59 100 % 16 5 = Fully awake and oriented or at pre-proc level 12:00 PM 144 / 71 50 99 % 16 5 = Fully awake and oriented or at pre-proc level 12:15 PM 146 / 69 52 99 % 16 5 = Fully awake and oriented or at pre-proc level 12:30 PM 169 / 101 50 100 % 16 5 = Fully awake and oriented or at pre-proc level 12:45 PM 159 / 80 51 100 % 16 5 = Fully awake and oriented or at pre-proc level 01:00 PM 166 / 102 50 100 % 16 5 = Fully awake and oriented or at pre-proc level 01:15 PM 155 / 83 62 100 % 16 5 = Fully awake and oriented or at pre-proc level 01:30 PM 152 / 83 56 100 % 18 5 = Fully awake and oriented or at pre-proc level 01:45 PM 147 / 80 52 100 % 18 5 = Fully awake and oriented or at pre-proc level 02:00 PM 152 / 84 53 100 % 16 5 = Fully awake and oriented or at pre-proc level Procedural Medications Time Medication Dose Units Method Given By 10:58 AM Oxygen 2 L/min nasal cannula Joleen Bo RN 10:58 AM Versed 2 mg Intravenous Joleen Bo RN 10:58 AM Fentanyl 50 mcg Intravenous Joleen Bo RN 11:04 AM Lidocaine 2% 1 ml Subcutaneous Slim Arredondo MD, FACC 11:08 AM Lidocaine 2% 14 ml Subcutaneous Slim Arredondo MD, FACC 11:21 AM Heparin 3000 units Intravenous Joleen Bo RN 11:23 AM Oxygen 4 L/min nasal cannula Joleen Bo RN 11:24 AM Oxygen 6 L/min nasal cannula Francisca Rayo RN 11:24 AM Aggrastat Bolus: 25 ml Intravenous Joleen Bo RN 11:26 AM Aggrastat 5mg/100ml 6 ml Intravenous Joleen Bo RN 11:27 AM Nitroglycerin 50 mcg Intracoronary Slim Arredondo MD ASA Classification: CLASS II- Mild systemic disease (i.e. well-controlled diabetes, hypertension, asthma, cigarette smoking) Felice Score Preprocedure Postprocedure Activity 2- Moves 4 extremities sustained head lift Activity 2- Moves 4 extremities sustained head lift Circulation 2- SBP +/= 20 points of pre-anesthetic level Circulation 2- SBP +/= 20 points of pre-anesthetic level Consciousness 2- Awake and alert oriented x 3 Consciousness 2- Awake and alert oriented x 3 O2 Saturation 2- Able to maintain O2 satruation of 92% on room air O2 Saturation 2- Able to maintain O2 satruation of 92% on room air Respiratory 2- Able to deep breathe and cough well Respiratory 2- Able to deep breathe and cough well Total Score 10 Total Score 10 Contrast Agent: Isovue Diagnostic Contrast: 109 ml Total Contrast: 109 ml Fluoro Dose: 216 mGy Activated Clotting Time Time Seconds to Clot 11:21 AM 147 11:41 AM 259 12:50 PM 191 01:50 PM 176 Procedure Log Time Note Enter By 10:35 AM CathStat 10:51 AM Pt arrived to hospital laboratory technician 2 at 10:51 [facility] 10:51 AM Vitals capture started with the following parameters, Patient=Adult, Interval=5 min, Initial Zpklidoy=168 mmHg, Deflation Rate=5 mmHg, Cuff placed on Right Arm 10:51 AM HR=65 bpm, GTZN=640/100 mmhg, SpO2=99.0 %, Resp=16 B/min, Comment=sr 10:52 AM [facility] 10[facility] Dutch and darrel completed [facility] 10:52 AM Sign in performed according to hospital policy. [email or web address] 10:53 AM Procedure start 10:53 [facility] 10[facility] AM Gerry Ayers (R) Position: Scrub Time in: 10:55 allan 10:55 AM Francisca Rayo RN Position: Turbinated Bone Grinder Time in: 10:55 [facility] 10[facility] AM Joleen Bo RN Position: Turbinated Bone Grinder Time in: 10:56 [facility] 10:56 AM Zia Mckeon RN Position: Monitor Time in: 10:56 [facility] 10:56 AM Elisa Curry RN Position: Monitor Time in: 10:56 [facility] 10:56 AM Patient charges- Angio tray pack, Navilyst 3mm J, Pulse Oximetry and ACIST tubing and transducer [facility] 10:57 AM HR=68 bpm, LFOK=487/82 mmhg, RyK2=663.0 %, Resp=15 B/min, Comment=sr 10:57 AM Case Delayed no, inpatient [facility] 10:57 AM ASA Class CLASS II- Mild systemic disease (i.e. well-controlled diabetes, hypertension, asthma, cigarette smoking) [facility] :57 AM Time: 10:57 Patient comfortable and pain free: Yes [facility] :57 AM Time: :57LOC: 5 = Fully awake and oriented or at pre-proc level [facility] 10:58 AM Time: 10:58 Oxygen on at 2 L/min per nasal cannula by Joleen Bo RN [facility] 10:58 AM Time: 10:58 Versed 2 mg Intravenous Given by Joleen Bo RN [facility] 10:58 AM Pressure channel 1 zeroed. 10:58 AM Time: 10:58 Fentanyl 50 mcg Intravenous Given by Joleen Bo RN [facility] 10:59 AM Hair removed from procedure site in holding area using clippers. Rt wrist, rt groin prepped with Chloraprep by Gerry Ayers (R), then patient was draped. Skin intact. [facility] 11:02 AM HR=55 bpm, FFAY=282/76 mmhg, SpO2=99.0 %, Resp=14 B/min, Comment=sb 11:02 AM Clinical Presentation: Non-STEMI [facility] 11:04 AM Time out performed according to hospital policy [facility] 11:04 AM Time: 11:04 1 ml Lidocaine 2% to right radial Subcutaneous Given by Slim Arredondo MD, [facility] 11:05 AM Recorded ECG: HR=67 Condition=Condition 1 11:06 AM Unsuccessful access attempt # 1 into the right Radial artery. Manual pressure applied to achieve hemostasis.. jcallihan 11:07 AM HR=54 bpm, AJFX=957/84 mmhg, XmA3=075.0 %, Resp=18 B/min 11:07 AM Unsuccessful access attempt # 2 into the right Radial artery. Manual pressure applied to achieve hemostasis.. jcallihan 11:10 AM Time: 11:08 14 ml Lidocaine 2% to right groin Subcutaneous Given by Slim Arredondo MD, [facility] jcallihan 11:12 AM HR=80 bpm, DCHK=963/63 mmhg, SpO2=99.0 %, Resp=12 B/min, Comment=sr 11:12 AM Access obtained by percutaneous puncture. 6Fr 11cm Terumo Glidesheath sheath placed in right Femoral artery. [id number] jcallihan 11:12 AM 5Fr FL 4 catheter inserted over the wire [facility] AM Time: 10:57LOC: 4 = Oriented but drowsy jcallihan 11:12 AM Time: 10:57 Patient comfortable and pain free: Yes jcallihan 11:13 AM Recorded Pressure: Ao, HR=52, Condition=Condition 1 (Aorta) Ao 105/51/74 11:13 AM LCA angiography performed in multiple views. jcallihan 11:14 AM Lesion found in 1st Marginal. Pre Stenosis: 99 Pre MACHELLE Flow: 2: Partial Flow/Perfusion (> 1 but < 3) jcallihan 11:15 AM Catheter removed jcallihan 11:15 AM 5Fr FR 4 catheter inserted over the wire [facility] 11:15 AM RCA angiography performed in multiple views. jcallihan 11:16 AM Recorded Pressure: Ao, HR=66, Condition=Condition 1 (Aorta) Ao 97/55/76 11:16 AM Coronary Dominance: right jcallihan 11:16 AM Catheter removed jcallan 11:16 AM Lesion found in Proximal RCA. Pre Stenosis: 50 Pre MACHELLE Flow: jcallihan 11:16 AM HR=68 bpm, PSKU=318/63 mmhg, SpO2=94.0 %, Resp=16 B/min, Comment=sr 11:17 AM Lesion found in Distal RCA. Pre Stenosis: 50 Pre MACHELLE Flow: jcallihan 11:17 AM 5Fr Pigtail catheter inserted over the wire [facility] jcallihan 11:17 AM Catheter selectively placed in left ventricle jcallihan 11:17 AM Recorded Pressure: LV, HR=60, Condition=Condition 1 (Left Ventricle) LV 96//22 11:18 AM Bolus angiogram of left Ventricle complete: 10 ml/sec for a total of 20 mls jcallihan 11:18 AM [facility] 11[facility] AM PCI Status Urgent jcallihan 11:18 AM PCI Indication: PCI for high risk Non-STEMI or unstable angina jcallan 11:19 AM .[address] [place] 190cm guide wire across target lesion- successful. reused? No jcallan 11:19 AM Inflation device was opened. jcallihan 11:20 AM Lesion found in Proximal LAD. Pre Stenosis: 60 Pre MACHELLE Flow: jcallan 11:20 AM Lesion found in Mid LAD. Pre Stenosis: 70 Pre MACHELLE Flow: allan 11:21 AM 6Fr EBU 3.5 Medtronic guide catheter was used to cannulate the PCI vessel successfully. reused? No jcallan 11: AM At 11:21 the ACT was 147 seconds. allan 11:21 AM HR=59 bpm, CHOE=266/64 mmhg, SpO2=94.0 %, Resp=16 B/min, Comment=sr 11: AM Time: 11: Heparin 3000 units Intravenous Given by Joleen Bo RN [facility] 11: AM Recorded Pressure: Ao, HR=59, Condition=Condition 1 (Aorta) Ao 95/43/66 11:23 AM Lesion found in LMCA. Pre Stenosis: 40 Pre MACHELLE Flow: [facility] 11: AM Time: 11:23 Oxygen on at 4 L/min per nasal cannula by [facility] 11:[facility] AM Time: 11:24 Oxygen on at 6 L/min per nasal cannula by Francisca Rayo RN [facility] 11:24 AM Recorded Pressure: Ao, HR=57, Condition=Condition 1 (Aorta) Ao 95/45/66 11:26 AM Time: 11:24 Aggrastat Bolus: 25 ml Intravenous Given by Joleen Bo RN Barth pump [facility] 11: AM Time: : Aggrastat 5mg/100ml 6 ml Intravenous Given by Joleen Bo RN Barth pump jcallihan 11:26 AM HR=59 bpm, DFVY=435/59 mmhg, SpO2=98.0 %, Resp=14 B/min, Comment=sr 11:27 AM 2.0 mm x 20 mm Emerge Monorail balloon across target lesion- successful. reused? No jcallihan 11:27 AM Balloon inflated @ 10 jasmine for 19 seconds jcallihan 11:27 AM Recorded Pressure: Ao, HR=60, Condition=Condition 1 (Aorta) Ao 89/45/65 11:27 AM Time: 11:27 Nitroglycerin 50 mcg Intracoronary Given by Slim Arredondo MD jcallihan 11:27 AM Time: 11:12 Patient comfortable and pain free: Yes jcallihan 11:28 AM Time: 11:12LOC: 4 = Oriented but drowsy jcallihan 11:30 AM Balloon catheter removed intact. jcallihan 11:30 AM 2.25mm x 28mm Synergy drug-eluting stent across target lesion- successful Lot #[id number] jcallihan 11:31 AM Recorded Pressure: Ao, HR=59, Condition=Condition 1 (Aorta) Ao 91/46/66 11:31 AM HR=52 bpm, RBTS=810/57 mmhg, SpO2=96.0 %, Resp=22 B/min, Comment=sr 11:32 AM Stent deployed @ 11 jasmine for 23 seconds jcallihan 11:32 AM Stent delivery system removed intact. jcallihan 11:34 AM Guide wire removed intact. jcallihan 11:34 AM Guide catheter removed intact. jcallihan 11:35 AM Bolus angiogram of right Femoral complete: 4 ml/sec for a total of 7 mls jcallihan 11:36 AM Procedure completed at 11:36 jcallihan 11:36 AM Sign out completed: Radiation Dose 216 mGy Fluoro Time: 4 Isovue 370 - 200ml contrast 109 ml given by Slim Arredondo MD, FACC. Complications: NoneCardiac Rehab Consult needed: YesConfirmed administered medications: Yes jcallihan 11:36 AM Isovue 370 - 200ml,1 Bottle(s) used. jcallihan 11:36 AM Sheath left in place to be pulled on floor/holding areaV+Pad jcallihan 11:37 AM HR=58 bpm, RJIC=280/72 mmhg, SpO2=98.0 %, Resp=13 B/min, Comment=sr 11:37 AM Post ECG Sinus Arrhythmia jcallihan 11:38 AM Post Blood Pressure 129/72 jcallihan 11:38 AM 11:38 Post Pulses Rt Radial 2+ jcallihan 11:41 AM At 11:41 the ACT was 259 seconds. jcallihan 11:42 AM Patient out of room: 11:42 jcallihan 11:42 AM Family placed in consult room. jcallihan 11:42 AM Report given to Blake TRINIDAD Pt taken to Holding room Room #4. 11:42 jcallihan 11:42 AM Delay to floor Bed availability jcallihan 11:42 AM pt to holding room bed availability, will go back to 2a63 when sheath is pulled jcallihan 11:43 AM Opsite applied jcallihan 01:52 PM Left Main Coronary Artery with 40% stenosis scoates 01:52 PM Proximal Left Anterior Descending Coronary Artery with 60% stenosis. If graft is supplying this territory, 0 % stenosis. scoates 01:52 PM Mid/Distal Left Anterior Descending Coronary Artery and diagonal branches with 70% stenosis. If graft is supplying this area, 0 % stenosis scoates 01:52 PM Circumflex, Obtuse Marginal, Left Posterior Descending, and Left Posterolateral Coronary Arteries with 99 % stenosis. If graft is supplying this area, 0 % stenosis scoates 01:52 PM Right Coronary, Right Posterior Descending Arteries with Right Posterolateral and Acute Marginal branches with 50 % stenosis. If graft is supplying this area, 0 % stenosis scoates 01:56 PM Information taught Cardiac Cath and PCI scoates 01:56 PM Education needs Procedure, Plan of Care, and Responsibilities of Patient in Care scoates 01:56 PM Learning barriers :None scoates 01:56 PM Education Methods Verbal scoates 01:56 PM Education evaluation Able to repeat information scoates 01:56 PM Plavix, Effient or Brilinta given Yes scoates 01:56 PM Complications: None scoates 01:56 PM Fluoro Time: 4 scoates 02:[address] Arredondo aware of ACT 176 per Carole Curry RN. Orders to proceed with sheath pull mprater 02:05 PM Right femoral sheath pulled per Elisa Curry RN. Manual pressure being held. kwitte 02:21 PM Hemostasis obtained to right femoral artery per Elisa Curry RN. Dressing applied with opsite. Patient educated on post sheath pull and instructions. Patient verbalized understanding. itt 02:29 PM Report given to antonieta TRINIDAD Pt taken to Holding room Room #2a63. 14:29 kwitte 02:29 PM Delay to floor Bed availability kwitte 02:30 PM Complications: None kwitte 02:45 PM Patient out of room: 1445 kwitte Complications Complication None None None Hemodynamics Pressures Site Systolic/A Wave Diastolic/V Wave Mean AO 105 51 74 AO 97 55 76 LV 96 11 22 AO 95 43 66 AO 95 45 66 AO 89 45 65 AO 91 46 66 Post Procedure Information Blood Pressure: 129/72 mmHg Rhythm: Sinus Arrhythmia Post procedural instructions were given Closure Device Time Device Success/Fail 10/04/2016 1:43:00 PM Manual Compression, sheath to be pulled in holding room when appropriate Site Checks Time Location Status Staff Sheath In? Note 11:45 AM Rt Wrist No bleeding/ No Hematoma Blake Lewis RN 11:45 AM Rt Groin No bleeding/ No Hematoma Blake Lewis RN 12:00 PM Rt Groin No bleeding/ No Hematoma Coral Hernandez RN 12:00 PM Rt Wrist No bleeding/ No Hematoma Coral Hernandez RN 12:15 PM Rt Groin No bleeding/ No Hematoma Coral Hernandez RN 12:15 PM Rt Wrist No bleeding/ No Hematoma Coral Hernandez RN 12:30 PM Rt Groin No bleeding/ No Hematoma Coral Hernandez RN 12:30 PM Rt Wrist No bleeding/ No Hematoma Coral Hernandez RN 12:45 PM Rt Groin No bleeding/ No Hematoma Coral Hernandez RN 12:45 PM Rt Wrist No bleeding/ No Hematoma Coral Hernandez RN 01:00 PM Rt Groin No bleeding/ No Hematoma Coral Hernandez RN 01:00 PM Rt Wrist No bleeding/ No Hematoma Coral Hernandez RN 01:15 PM Rt Groin No bleeding/ No Hematoma Coral Hernandez RN 01:15 PM Rt Wrist No bleeding/ No Hematoma Coral Hernandez RN 01:30 PM Rt Groin No bleeding/ No Hematoma Coral Hernandez RN 01:30 PM Rt Groin No bleeding/ No Hematoma Blake Lewis RN 01:45 PM Rt Groin No bleeding/ No Hematoma Coral Hernandez RN 02:00 PM Rt Groin No bleeding/ No Hematoma Coral Hernandez RN 02:21 PM Rt Groin No bleeding/ No Hematoma PatricioElisa mcrae RN 02:35 PM Rt Groin No bleeding/ No Hematoma [place], Elisa TRINIDAD Pulses Time Site Pre-Procedure Post-Procedure Note 10/04/2016 10:54:00 AM Bilateral radial 2+ 11:38:00 AM Rt Radial 2+ 10/04/2016 1:00:00 PM Rt Radial 2+ 10/04/2016 1:00:00 PM Bilateral DP & PT 1+ Updated by Blake Lewis RN on 10/04/2016 3:01:10 PM Blake Lewis RN electronically signed on 10/04/2016 3:01:36 PM with status of Final
[2016-10-04] MEDS ORDERED: Famotidine 20 MG TABLET PO SCH (21:00)
[2016-10-05 06:06] LABS: Hematocrit 36.7 % (35.3-44.9); Hemoglobin 11.6 g/dL (11.5-15.4); Mean Corpuscular HGB Conc 31.6 g/dL (31.6-35.5); Mean Corpuscular Hemoglobin 30.3 pg (28.0-33.3); Mean Corpuscular Volume 95.8 fL (83.0-100.0); Mean Platelet Volume 10.1 fL (9.4-12.4); Platelet Count 206 K/mcL (140-400); Red Blood Count 3.83 M/mcL (3.82-4.97); Red Cell Distribution Width 15.5 % (11.5-14.5)
[2016-10-05 06:19] LABS: BUN/Creatinine Ratio 23 (6-26); Blood Urea Nitrogen 18 mg/dL (7-20); Calcium 8.6 mg/dL (8.6-10.8); Carbon Dioxide 25 mEq/L (19-29); Chloride 105 mEq/L (98-109); Glucose 93 mg/dL (70-99); Osmolality,Calculated 286 (280-300); Potassium 4.2 mEq/L (3.5-4.5); Sodium 137 mEq/L (136-145); eGFR For African Americans > 60 (> 60); eGFR For Non-African Americans > 60 (> 60)
--- NOTE | 2016-10-05 07:45 | Electrocardiograph Report ---
[place] [id number] Test Date: 2016-10-03 Pat Name: Lina France Department: 104 Room: 2A Gender: F [employer] Worker: JAZMYNE : 1930 Requested By: Zion Mulligan Order Number: [id number] Reading MD: Slim Arredondo MD Measurements Intervals [place] Rate: 75 P: 66 [place]: 154 QRS: 26 QRSD: 80 T: 2 QT: 378 QTc: 407 Interpretive Statements SINUS RHYTHM WITH MARKED SINUS ARRHYTHMIA Electronically Signed On 10-04-2016 17:42:42 EDT by Slim Arredondo MD
[2016-10-05] MEDS ORDERED: Famotidine 20 MG TABLET PO SCH (09:02)
--- NOTE | 2016-10-05 09:10 | Cardiology Progress Note ---
Date of Encounter: 10/05/16 Time of Encounter: 09:08 Assessment and Plan (1) NSTEMI (non-ST elevated myocardial infarction) Current Visit: Yes Status: Acute Troponins 0.55, 0.73, 0.66. EKG showed ST depression in leads III and aVF. LHC yesterday residual 2 vessel disease. EF 65%. PTCA/COOPER to OM. 60% pLAD stenosis, 70% mid and mid distal LAD disease small and diffusely diseased. 50% pRCA and distal RCA disease, 40% LMCA. Recommend DAPT (ASA and Plavix) uninterrupted x 1 year. Pt verbalizes understanding. Continue BB and Statin. PRN nitro. Echo shows EF 60% with normal wall motion. Right femoral access site healing well. No bleeding or hematoma. Mild ecchymosis noted. Cardiology signing off. Reconsult PRN. Follow-up in 1 week as outpt--will coordinate. (2) HTN (hypertension) Current Visit: Yes Status: Acute Elevated on admission 190/118, now improved. Continue Atenolol, adjust/add antihypertensives as necessary. Qualifiers: Hypertension type: essential hypertension Qualified Code(s): I10 - Essential (primary) hypertension (3) UTI (urinary tract infection) Current Visit: Yes Status: Acute Urine culture grew enterococcus. Management per primary team. Qualifiers: Urinary tract infection type: site unspecified Hematuria presence: without hematuria Qualified Code(s): N39.0 - Urinary tract infection, site not specified Discussion w patient/family: The assessment and plan as outlined above was discussed with the patient and/or family members who expressed understanding and agreement. All questions were answered. Thank you for involving us in the care of your patient. Please call with any questions. I will discuss all the above with Dr. Ibrahima Lazaro and make changes as necessary. Subjective Principal diagnosis: NSTEMI Interval history: S/P LHC yesterday--Residual 2 vessel disease, EF 65%. PTCA/COOPER to OM. There was 60% pLAD stenosis, 70% mid and mid distal LAD which was small and diffusely diseased. 50% pRCA and distal RCA, 40% LMCA. Echo EF 60%, mild MR/TR. Pt denies any complaints today--denies dyspnea, chest pain or back pain. Objective Vital Signs, Last 4 Hours Temp Pulse Resp BP Pulse Ox 10/05/16 06:53 98.1 F 74 14 124/71 96 Vital Signs Temp Pulse Resp BP Pulse Ox 10/05/16 06:53 98.1 F 74 14 124/71 96 10/05/16 04:53 98.2 F 76 16 119/67 94 10/05/16 00:31 98.6 F 65 16 104/61 95 10/04/16 19:46 98.0 F 70 16 113/61 94 10/04/16 18:58 58 96/58 96 10/04/16 17:58 67 16 109/68 100 10/04/16 16:58 63 16 144/76 100 10/04/16 16:29 63 16 122/64 93 10/04/16 16:01 58 16 142/82 100 10/04/16 15:43 55 18 144/83 98 10/04/16 15:29 59 18 129/70 100 10/04/16 15:13 57 16 144/78 100 10/04/16 14:58 97.5 F L 60 16 172/77 100 10/04/16 14:50 97.5 F L 70 16 147/78 2 Intake and Output 10/04/16 10/05/16 10/05/16 23:59 07:59 15:59 Intake Total 799 / 799 Balance 799 / 799 Intake: IV Fluids 439 / 439 0.9 % Sodium Chloride 1, 400 / 400 000 ML @ 50 mls/hr IVC . Q20H TEN Rx#:[id number] Aggrastat 12.5 MG/250 ML 39 / 39 12.5 mg In 250 ml @ 0.15 MCG/KG/MIN 11.898 mls/hr IVC .Q21H1M TEN Rx#: [id number] Oral 360 / 360 Other: Meal Dinner Percent of Meal Consumed 85% # Voids 1 Weight 63.684 kg Patient Weight 10/05/16 23:59 Weight 63.684 kg Vital Signs Temp Pulse Resp BP Pulse Ox 10/05/16 06:53 98.1 F 74 14 124/71 96 10/05/16 04:53 98.2 F 76 16 119/67 94 10/05/16 00:31 98.6 F 65 16 104/61 95 10/04/16 19:46 98.0 F 70 16 113/61 94 10/04/16 18:58 58 96/58 96 10/04/16 17:58 67 16 109/68 100 10/04/16 16:58 63 16 144/76 100 10/04/16 16:29 63 16 122/64 93 10/04/16 16:01 58 16 142/82 100 10/04/16 15:43 55 18 144/83 98 10/04/16 15:29 59 18 129/70 100 10/04/16 15:13 57 16 144/78 100 10/04/16 14:58 97.5 F L 60 16 172/77 100 10/04/16 14:50 97.5 F L 70 16 147/78 2 Intake and Output 10/04/16 10/05/16 10/05/16 23:59 07:59 15:59 Intake Total 799 / 799 Balance 799 / 799 Intake: IV Fluids 439 / 439 0.9 % Sodium Chloride 1, 400 / 400 000 ML @ 50 mls/hr IVC . Q20H TEN Rx#:[id number] Aggrastat 12.5 MG/250 ML 39 / 39 12.5 mg In 250 ml @ 0.15 MCG/KG/MIN 11.898 mls/hr IVC .Q21H1M TEN Rx#: [id number] Oral 360 / 360 Other: Meal Dinner Percent of Meal Consumed 85% # Voids 1 Weight 63.684 kg Patient Weight 10/05/16 23:59 Weight 63.684 kg General: Conversant, No Apparent Distress HEENT: Atraumatic, Normocephaly, Mucus Membranes Moist Neck: No JVD, Normal carotid pulses Cardiac: Reg Rate and Rhythm, Normal S1 and S2, No Murmur Lungs: Normal Breath Sounds, No Wheeze, Rales, Rhonchi Neuro: Alert and responsive, No focal deficits noted Abdomen: Soft, Non-Tender Skin: Other (right femoral access site healing well--no bleeding or hematoma. Mild amount of ecchymosis noted.) Musculoskeletal: No Chest Wall Tenderness Extremities: No Clubbing, No Cyanosis, No Edema, Normal Pulses Results 10/05/16 05:23 10/05/16 05:23 Lab Results 10/05/16 10/05/16 05:23 05:23 WBC 6.8 Hgb 11.6 Hct 36.7 Plt Count 206 Sodium 137 Potassium 4.2 Chloride 105 Carbon Dioxide 25 BUN 18 Creatinine 0.77 Glucose 93 Calcium 8.6 Short CBC 10/05/16 Range/Units 05:23 WBC 6.8 (4.3-11.1) K/mcL Hgb 11.6 (11.5-15.4) g/dL Hct 36.7 (35.3-44.9) % Plt Count 206 (140-400) K/mcL BMP 10/05/16 Range/Units 05:23 Sodium 137 (136-145) mEq/L Potassium 4.2 (3.5-4.5) mEq/L Chloride 105 (98-109) mEq/L Carbon Dioxide 25 (19-29) mEq/L BUN 18 (7-20) mg/dL Creatinine 0.77 (0.57-1.11) mg/dL Glucose 93 (70-99) mg/dL Calcium 8.6 (8.6-10.8) mg/dL Urine 10/03/16 Range/Units 17:05 Urine Color Yellow (Yellow) Urine Clarity Cloudy A (Clear) Urine pH 7.0 (5.0-8.0) pH Units Ur Specific [place] 1.020 (1.010-1.025) Urine Protein Negative (Neg-Trace) mg/dL Urine Glucose (UA) Normal (Normal) mg/dL Impressions Echocardiogram 10/04/16 20:31 Impressions: Sinus arrhythmia. LVEF 60%. Normal left ventricular size and systolic function. Indeterminate left ventricular diastolic function. Normal right ventricular size and function. Mild mitral regurgitation. Mild tricuspid regurgitation. No pulmonary hypertension. Left Ventricular Wall Motion: Rest Echo Findings All wall segments showed normal motion. Findings: Study Quality * Technically adequate exam. ECG Findings * Normal sinus rhythm and possible sinus arrhythmia. Left Ventricle * LVEF 60%. * Normal LV chamber size, wall thickness and function. * Indeterminate diastolic function. Aorta * Normally sized aortic root. Aortic Valve * No aortic regurgitation. * Trileaflet aortic valve. * Normal aortic valve structure. * No aortic stenosis. Mitral Valve * Normal mitral valve structure. * No mitral stenosis. * Mild mitral regurgitation. Tricuspid Valve * Normal tricuspid valve structure. * Mild tricuspid regurgitation. * Estimated RA pressure is 3 mmHg. * Estimated RVSP is 23 mmHg. * No pulmonary hypertension. Pulmonic Valve * Pulmonic valve is not well visualized. * No pulmonic stenosis. * No pulmonic regurgitation. Pulmonary Artery * Pulmonary artery not well visualized. Left Atrium * Severely dilated left atrium. Right Atrium * Normal right atrial size. Right Ventricle * Normal right ventricular structure and function. Interatrial Septum * No evidence of PFO by color Doppler. Pericardium * There is no pericardial effusion present. IVC * Normal IVC dimensions and inspiratory collapse. Active Medications Acetaminophen (Tylenol) 650 mg PO Q6HR PRN PRN Reason: Mild Pain (1-3) Stop: 04/04/17 20:30 Aspirin (Aspirin Ec) 81 mg PO DAILY [facility] Stop: 04/05/17 12:01 Last Admin: 10/04/16 15:07 Dose: 81 mg Atenolol (Tenormin) 12.5 mg PO DAILY [facility] Stop: 04/05/17 09:01 Last Admin: 10/04/16 08:46 Dose: 12.5 mg Atorvastatin Calcium (Lipitor) 40 mg PO HS [facility] Stop: 04/05/17 21:01 Last Admin: 10/04/16 20:53 Dose: 40 mg Calcium Carbonate (Tums) 1,000 mg PO Q4HR PRN; Protocol PRN Reason: Heartburn Stop: 04/04/17 21:31 Last Admin: 10/03/16 22:24 Dose: 1,000 mg Clopidogrel Bisulfate (Plavix) 75 mg PO DAILY [facility] Stop: 04/06/17 09:01 Famotidine (Pepcid) 20 mg PO 0730,1630 TEN PRN Reason: Protocol Stop: 04/06/17 09:03 Lidocaine HCl (Lidoderm 5% Patch) 1 each TP DAILY [facility] Stop: 04/05/17 09:01 Last Admin: 10/04/16 08:50 Dose: 1 each Naloxone HCl (Narcan) 0.4 mg IVP Q2MIN PRN PRN Reason: Opioid Reversal Stop: 04/04/17 20:26 - Imaging and Cardiology Echo: report reviewed Cardiac cath: report reviewed - EKG Interpretation EKG results cardiology: other (12 hr tele AVG HR 68, sinus arrhythmia) Consult Discharge Plan - Plan Referrals: Fernanda Gaines MD [Partnered Physician] - 10/12/16 10:00 am (will be seen by Dr. Pang LIGHT TECHNICIAN)
[2016-10-05] MEDS ORDERED: Nitroglycerin 0.4 MG TAB.SUBL SL PRN (09:27)
[2016-10-05] MEDS: Aspirin Enteric Coated 81 MG Tablet PO SCH (09:38)
--- NOTE | 2016-10-05 10:15 | Discharge Summary ---
<Daniel Upton - Last Filed: 10/05/16 13:32> Date of Encounter: 10/05/16 Time of Encounter: 10:13 - Discharge Diagnosis (1) NSTEMI (non-ST elevated myocardial infarction) Priority: Primary Status: Acute (2) HTN (hypertension) Priority: Secondary Status: Acute Qualifiers: Hypertension type: essential hypertension Qualified Code(s): I10 - Essential (primary) hypertension (3) Lower back pain Priority: Secondary Status: Acute Qualifiers: Chronicity: acute Back pain laterality: left Sciatica presence: without sciatica Qualified Code(s): M54.5 - Low back pain (4) DVT prophylaxis Priority: Secondary Status: Acute - Discharge Medications Prescriptions: Aspirin Enteric Coated [Aspirin EC] 81 mg PO DAILY #30 tab Atorvastatin [Lipitor] 40 mg PO HS #30 tab Clopidogrel [Plavix] 75 mg PO DAILY #90 tablet Clopidogrel [Plavix] 75 mg PO DAILY #30 tablet Home Medications: Multivitamin [Multi-Day Vitamins] 1 each PO DAILY 10/03/16 [History] Aspirin Enteric Coated [Aspirin EC] 81 mg PO DAILY #30 tab 10/05/16 [Rx] Atenolol [Tenormin] 12.5 mg PO DAILY tab 10/05/16 [Rx] Atorvastatin [Lipitor] 40 mg PO HS #30 tab 10/05/16 [Rx] Clopidogrel [Plavix] 75 mg PO DAILY #30 tablet 10/05/16 [Rx] Clopidogrel [Plavix] 75 mg PO DAILY #90 tablet 10/05/16 [Rx] Allergies/Adverse Reactions: Allergies Amoxicillin Allergy (Verified 10/03/16 16:47) Hives Procedures/tests Complete & Pending: Procedures Performed prior 72 hours Category Date Time Status CL Cardiac Catheterization [CL] Routine Tool Carrier 10/04/16 09:59 Completed ECG 12 lead ECG [ECG] Routine Y 10/03/16 16:42 Completed ECG 12 lead ECG [ECG] Routine Y 10/04/16 11:39 Ordered EV echocardiogram Routine Y 10/04/16 20:31 Completed Date of admission: 10/03/16 20:25 Primary care physician: Lo Hooper CNP Consults: 10/04/16 09:32 Consult to Cardiac Rehabilitation-Phase1 [CONS] Routine Comment: Reason for Consult: NSTEMI Call Completed: Yes - Patient Status Disposition: Home, Self-Care Condition: Good - Discharge Instructions Instructions: Myocardial Infarction (DC), Urinary Tract Infection in Women (DC) Follow Up With: Fernanda Gaines MD [Partnered Physician] - 10/12/16 10:00 am (will be seen by Dr. Pang [facility]) - Diet and Activity Diet: low salt diet Hospital course: Ms France is an 86 year old female who was admitted on 10/03/16 due to general weakness, elevated BP of 190/118, and indigestion/centralized back pain. In the ED, serial EKG performed with one reported depressed ST in II, III, aVF, and troponin of 0.55, 0.73, 0.66. Heparin gtt was started in ED. Patient was started on Lipitor, ACEI, BB, and given 1 dose of 325 mg ASA. BP at this time was controlled. Cardiology was consulted, and at this point patient was admitted to the floor. 2D echo showed LVEF 60% and normal chamber size. She received COOPER due to 2 vessel disease without any complications. Patient was observed over night, and remained stable. Patient was discharged with prescription for plavix, ASA 81, Atenolol, and Atorvastatin 40 mg. - Time Spent with Patient Total time spent providing and/or coordinating discharge services: - Constitutional Vitals: Temp Pulse Resp BP Pulse Ox 98.1 F 74 14 124/71 96 10/05/16 06:53 10/05/16 06:53 10/05/16 06:53 10/05/16 06:53 10/05/16 06:53 General appearance: Present: A&O X 3 - Head Head exam: Present: atraumatic, normocephalic - Respiratory Respiratory exam: Present: CTAB. Absent: accessory muscle use, rales, rhonchi, wheezes - Cardiovascular Cardiovascular exam: Present: RRR, +S1, +S2. Absent: diastolic murmur, gallop, rubs, systolic murmur - GI/Abdominal GI/Abdominal exam: Present: normal bowel sounds, soft, no peritoneal signs. Absent: distended, tenderness - Neurological Exam Neurological exam: Present: alert, oriented X3 - Psychiatric Psychiatric exam: Present: normal affect, normal mood - Skin Skin exam: Present: intact <Benigno Soler - Last Filed: 10/05/16 17:31> Date of Encounter: 10/05/16 - Discharge Diagnosis (1) NSTEMI (non-ST elevated myocardial infarction) Status: Acute (2) CAD (coronary artery disease), [place] coronary artery Priority: Primary Status: Chronic Qualifiers: [place] vs. transplanted heart: hughes heart Associated angina: without angina Qualified Code(s): I25.10 - Atherosclerotic heart disease of [place] coronary artery without angina pectoris (3) HTN (hypertension) Status: Chronic Qualifiers: Hypertension type: essential hypertension Qualified Code(s): I10 - Essential (primary) hypertension (4) Lower back pain Status: Chronic Qualifiers: Chronicity: acute Back pain laterality: left Sciatica presence: without sciatica Qualified Code(s): M54.5 - Low back pain Procedures/tests Complete & Pending: Procedures Performed prior 72 hours Category Date Time Status CL Cardiac Catheterization [CL] Routine Tool Carrier 10/04/16 09:59 Completed ECG 12 lead ECG [ECG] Routine Y 10/03/16 16:42 Completed ECG 12 lead ECG [ECG] Routine Y 10/04/16 11:39 Ordered EV echocardiogram Routine Y 10/04/16 20:31 Completed - Notes to Outpatient Provider Pt had urine culture with enterococcus. We felt it was probably a contaminant as UA was not impressive and dirty. She had no symptoms. May need repeated in outpatient. Date of admission: 10/03/16 20:25 Primary care physician: Lo Hooper CNP Consults: 10/04/16 09:32 Consult to Cardiac Rehabilitation-Phase1 [CONS] Routine Comment: Reason for Consult: NSTEMI Call Completed: Yes Hospital course: Ms. France is a 86 year old female - Time Spent with Patient Total time spent providing and/or coordinating discharge services: 39min - Constitutional Vitals: Temp Pulse Resp BP Pulse Ox 98.0 F 67 14 121/63 95 10/05/16 10:55 10/05/16 10:55 10/05/16 10:55 10/05/16 10:55 10/05/16 10:55 - Attending Attestation I examined this patient and my medical decision-making was reviewed with the Resident Physician on 10/05/16. I agree with the documented findings, disposition and treatment plan as described except to the extent set forth below. Ms. [place] has been admitted for acute NSTEMI. She underwent LHC with stent placement. Today she feels well and her vitals are stable. She is afebrile. She is ready for discharge home. Exam Alert. Comfortable Mucus membranes moist Heart reg No wheeze No edema Abd soft Plan D/C home today. ASA/Plavix for 1 year - she was given 2 scripts for Plavix- one short term and one 3 month for mail away.
[2016-10-05 10:57] VITALS: BP 121/63
== END 2016-10-05 11:45 | disposition home or self-care (01) | DRG 247 ==
LOC: 2ANU 16:44 → EMEROO 16:44 → 2ANU 19:50 → SUATTDRO 20:25
PROVIDERS: ADMIT Internal Medicine; ATTEND Internal Medicine

== ENCOUNTER 2016-11-12 19:18 | Inpatient (IN) ==
[2016-11-12] MEDS ORDERED: Ondansetron 4 MG/2 ML VIAL IVP ONE (19:39)
[2016-11-12] MEDS ORDERED: 0.9 % Sodium Chloride 1,000 ML IVC ONE (19:39)
[2016-11-12 20:01] LABS: Bilirubin,Urine Negative (Negative); Blood,Urine Small (Negative); Clarity,Urine Turbid (Clear); Color,Urine Yellow (Yellow); Glucose,Urine (UA) Normal (Normal); Ketones,Urine Negative (Negative); Leukocyte Esterase,Urine Small (Negative); Nitrite,Urine Negative (Negative); Protein,Urine Trace mg/dL (Neg-Trace); Specific Gravity,Urine 1.021 (1.010-1.025); Urobilinogen,Urine Normal (Normal)
[2016-11-12 20:03] LABS: Bacteria,Urine None Seen per hpf (None-Few); Hyaline Casts,Urine None Seen per lpf (None-Few); Squamous Epithelial Cell,Urine Many per lpf (None-Few)
--- NOTE | 2016-11-12 20:19 | Emergency Department Note ---
Disposition Clinical Impression: Small bowel obstruction Disposition: Admitted As Inpatient Condition: Good Referrals: NONE,PCP [Non-Partnered Physician] - Forms: ED Satisfaction Letter, Work/School Release Time of Disposition: 22:28 Abdominal Pain HPI - General Chief Complaint: ED Abdominal Pain Stated Complaint: N/V Time Seen by Provider: 11/12/16 19:39 Source: patient, family Mode of arrival: wheelchair Limitations: no limitations Nursing Notes Reviewed: Yes Vital Signs Reviewed: Yes - History of Present Illness HPI Narrative: 86 year old female who states she has a HX Of diverticulitis which has require colon resection in addition to SBO in the past and has been vomitting about 6-8 time sine 1630 today, non-bloody no bilious. Patient states she is experiencin increased LLQ pain that radiates into the right side of her abdomen and that she feels overall weak. She states that this is very simliar to when she had diveticulitis in the past or her SBO. Patient denies fevers, chest pain, shortness of breaht, UTI symptoms or back pain. Patient states that after having the zofran she feels increasingly better. Abdomnial pain is decsribed as sharp. She has vomited three times on the way to the ED today. She states that she was walking around at the department stores and then started to feel increasingl nauseated and that is when she started to vomit Pain Scale: 7 - Related Data Home Medications Medication Instructions Recorded Confirmed Multivitamin [Multi-Day Vitamins] 1 each PO DAILY 10/03/16 11/12/16 Omeprazole [PriLOSEC] 20 mg PO QPM 11/12/16 11/12/16 Previous Rx's Medication Instructions Recorded Aspirin Enteric Coated [Aspirin EC] 81 mg PO DAILY #30 tab 10/05/16 Atenolol [Tenormin] 12.5 mg PO DAILY tab 10/05/16 Atorvastatin [Lipitor] 40 mg PO HS #30 tab 10/05/16 Clopidogrel [Plavix] 75 mg PO DAILY #90 tablet 10/05/16 Allergies Allergy/AdvReac Type Severity Reaction Status Date / Time Amoxicillin Allergy Hives Verified 11/12/16 19:31 Constitutional: Denies: fever, chills, weakness, weight change Eyes: Denies: eye pain, eye discharge, vision change ENT ED: Denies: ear pain, throat pain, dental pain, hearing loss, epistaxis, congestion, dysphagia Cardiovascular: Denies: chest pain, palpitations, dyspnea on exertion, edema, syncope Respiratory: Denies: cough, dyspnea, wheezes, hemoptysis, stridor Gastrointestinal: Reports: abdominal pain, nausea, vomiting. Denies: diarrhea, constipation, hematemesis, melena, hematochezia Genitourinary: Denies: dysuria, frequency, hematuria, discharge Musculoskeletal: Denies: back pain, neck pain, arthralgia, myalgia Integumentary: Denies: rash, abrasion, lesions Neurological: Denies: headache, weakness, numbness, paresthesias, confusion, abnormal gait, vertigo Psychiatric: Denies: anxiety, depression, suicidal thoughts, homicidal thoughts , auditory hallucinations, visual hallucinations Endocrine: Denies: fatigue Hematological/Lymphatic: Denies: easy bleeding, easy bruising Allergic/Immunologic: Denies: facial swelling, urticaria Abdominal Pain PMH - Past Medical History Medical history: Reports: hyperlipidemia, hypertension, myocardial infarction Female Surgical History: Reports: hysterectomy, other Psychiatric history: Reports: no psych history - Social History Smoking status: Never smoker Alcohol use: Reports: none Drug use: Reports: unknown Physical Exam - General Limitations: no limitations General appearance: alert, in no apparent distress - Head Head exam: atraumatic, normocephalic, normal inspection - Eye Eye exam: Present: normal appearance, PERRL, EOMI - Expanded Eye Exam Pupils: Left: reactive - ENT ENT exam: normal exam, normal oropharynx, mucous membranes moist - Expanded ENT Exam External ear exam: Present: normal external inspection Mouth exam: Present: normal external inspection Teeth exam: Present: normal inspection Throat exam: Present: normal inspection - Neck Neck exam: Present: normal inspection, full ROM, trachea midline - Chest Chest inspection: Present: normal inspection, symmetric chest wall rise - Respiratory Respiratory exam: Present: normal lung sounds bilaterally - Cardiovascular Cardiovascular exam: Present: regular rate, normal rhythm, normal heart sounds - Abdominal Exam Abdominal exam: Present: soft, tenderness, normal bowel sounds. Absent: Non- Tender, distention, guarding, rebound, rigidity, Aceves's sign, Rovsing's sign, tenderness at McBurney's Point, bruit, pulsatile mass Abdominal tenderness: Present: LLQ, mild - Extremities Exam Extremities exam: Present: normal inspection, full ROM. Absent: tenderness, pedal edema - Expanded Upper Extremity Exam Shoulder exam: Present: normal inspection, full ROM Arm exam: Present: normal inspection, full ROM Elbow exam: Present: normal inspection, full ROM Forearm/Wrist exam: Present: normal inspection, full ROM Hand exam: Present: normal inspection, full ROM Vascular exam: Normal: capillary refill, radial pulse - Expanded Lower Extremity Exam Hip/Pelvis exam: Present: normal inspection, full ROM Upper leg exam: Present: normal inspection, full ROM Knee exam: Present: normal inspection, full ROM Lower leg exam: Present: normal inspection, full ROM Ankle exam: Present: normal inspection, full ROM Foot/toe exam: Present: normal inspection, full ROM Neurovascular/Tendon exam: Absent: motor deficit, sensory deficit, tendon deficit - Back Exam Back exam: Present: normal inspection, full ROM. Absent: tenderness - Neurological Exam Neurological exam: Present: alert, oriented X3 - Expanded Neurological Exam Patient oriented to: Present: person, place, time Coma Scale Eye Opening: Spontaneous Coma Scale Motor Response: Obeys Commands Coma Scale Verbal Response: Oriented Coma Scale Total: 15 - Psychiatric Psychiatric exam: Present: normal affect, normal mood - Skin Skin exam: Present: warm, dry, intact, normal color Course Course Narrative: we will do ABCT with rule out diveriticulitis or SBO, zofran/IVF and lab work. - Reevaluation(s) Reevaluation #1: upated patient and family and they are agreeable to plan Time: 22:27 - Consultations Consultation #1: discussed case with Dr. Goodwin and she will see natalya in consult to admission to medicine Time: 22:10 Consultation #2: discused case with Dr. Davis and he accepts patient to his service Time: 22:27 Vital Signs Temperature 98 F 11/12/16 19:25 Pulse Rate 80 11/12/16 19:25 Respiratory Rate 20 11/12/16 19:25 Blood Pressure 161/100 11/12/16 19:25 O2 Sat by Pulse Oximetry 96 11/12/16 19:25 Temperature 98 F 11/12/16 19:25 Pulse Rate 78 11/12/16 21:49 Respiratory Rate 16 11/12/16 21:49 Blood Pressure 145/86 11/12/16 21:49 O2 Sat by Pulse Oximetry 97 11/12/16 21:49 Oxygen Delivery Oxygen Delivery Room Air Abdominal Pain - Lab Data Result diagrams: 11/12/16 20:33 11/12/16 20:33 Lab Results 11/12/16 11/12/16 11/12/16 Range/Units 19:50 20:04 20:33 WBC 9.2 (4.3-11.1) K/mcL RBC 4.15 (3.82-4.97) M/mcL Hgb 12.6 (11.5-15.4) g/dL Hct 39.8 (35.3-44.9) % MCV 95.9 (83.0-100.0) fL MCH 30.4 (28.0-33.3) pg MCHC 31.7 (31.6-35.5) g/dL RDW 15.0 H (11.5-14.5) % Plt Count 208 (140-400) K/mcL MPV 9.6 (9.4-12.4) fL Immature Gran % 0.3 (0-4) % Seg Neutrophils % 86.6 % Lymphocytes % 8.4 % Monocytes % 4.5 % Eosinophils % 0.1 % Basophils % 0.1 % Neutrophils # 8.0 (1.6-8.9) K/mcL Lymphocytes # 0.8 (0.6-4.6) K/mcL Monocytes # 0.4 (0.0-1.3) K/mcL Eosinophils # 0.0 (0.0-0.6) K/mcL Basophils # 0.0 (0.0-0.2) K/mcL Immature Plt Fraction 2.8 (1.1-6.1) % PT (9.4-12.1) Seconds INR APTT (26.0-36.0) Seconds Sodium (136-145) mEq/L Potassium (3.5-4.5) mEq/L Chloride (98-109) mEq/L Carbon Dioxide (19-29) mEq/L BUN (7-20) mg/dL Creatinine (0.57-1.11) mg/dL Est GFR ( Amer) (> 60) Est GFR (Non-Af Amer) (> 60) BUN/Creatinine Ratio (6-26) Glucose (70-99) mg/dL Calculated Osmolality (280-300) Lactic Acid (0.5-2.2) mmol/L Calcium (8.6-10.8) mg/dL Total Bilirubin (0.2-1.2) mg/dL Direct Bilirubin (0.0-0.5) mg/dL Indirect Bilirubin (0.0-1.2) mg/dL AST (5-34) Units/L ALT (0-55) Units/L Alkaline Phosphatase (38-126) Units/L Troponin I (0-0.03) ng/mL Serum Total Protein (6.0-8.3) g/dL Albumin (3.5-5.0) g/dL Globulin (2.4-3.5) g/dL Albumin/Globulin Ratio (1.1-2.2) Lipase (8-78) Units/L Urine Color Yellow (Yellow) Urine Clarity Turbid A (Clear) Urine pH 7.0 (5.0-8.0) pH Units Ur Specific [place] 1.021 (1.010-1.025) Urine Protein Trace (Neg-Trace) mg/dL Urine Glucose (UA) Normal (Normal) mg/dL Urine Ketones Negative (Negative) mg/dL Urine Blood Small H (Negative) Urine Nitrite Negative (Negative) Urine Bilirubin Negative (Negative) Urine Urobilinogen Normal (Normal) mg/dL Ur Leukocyte Esterase Small H (Negative) Urine Microscopic RBC 5-15 H (0-3) per hpf Urine Microscopic WBC 3-5 H (0-3) per hpf Ur Squamous Epith Cells Many H (None-Few) per lpf Urine Bacteria None Seen (None-Few) per hpf Hyaline Casts None Seen (None-Few) per lpf Ur Culture Indicated? YES A (NO) Specimen Rejected Clotted 11/12/16 11/12/16 11/12/16 Range/Units 20:33 20:33 20:33 WBC (4.3-11.1) K/mcL RBC (3.82-4.97) M/mcL Hgb (11.5-15.4) g/dL Hct (35.3-44.9) % MCV (83.0-100.0) fL MCH (28.0-33.3) pg MCHC (31.6-35.5) g/dL RDW (11.5-14.5) % Plt Count (140-400) K/mcL MPV (9.4-12.4) fL Immature Gran % (0-4) % Seg Neutrophils % % Lymphocytes % % Monocytes % % Eosinophils % % Basophils % % Neutrophils # (1.6-8.9) K/mcL Lymphocytes # (0.6-4.6) K/mcL Monocytes # (0.0-1.3) K/mcL Eosinophils # (0.0-0.6) K/mcL Basophils # (0.0-0.2) K/mcL Immature Plt Fraction (1.1-6.1) % PT 12.8 H (9.4-12.1) Seconds INR 1.2 APTT 27.0 (26.0-36.0) Seconds Sodium 137 (136-145) mEq/L Potassium 3.8 (3.5-4.5) mEq/L Chloride 103 (98-109) mEq/L Carbon Dioxide 23 (19-29) mEq/L BUN 15 (7-20) mg/dL Creatinine 0.72 (0.57-1.11) mg/dL Est GFR ( Amer) > 60 (> 60) Est GFR (Non-Af Amer) > 60 (> 60) BUN/Creatinine Ratio 21 (6-26) Glucose 132 H (70-99) mg/dL Calculated Osmolality 287 (280-300) Lactic Acid 1.8 (0.5-2.2) mmol/L Calcium 9.5 (8.6-10.8) mg/dL Total Bilirubin 1.2 (0.2-1.2) mg/dL Direct Bilirubin 0.5 (0.0-0.5) mg/dL Indirect Bilirubin 0.7 (0.0-1.2) mg/dL AST 19 (5-34) Units/L ALT 12 (0-55) Units/L Alkaline Phosphatase 69 (38-126) Units/L Troponin I (0-0.03) ng/mL Serum Total Protein 8.1 (6.0-8.3) g/dL Albumin 3.2 L (3.5-5.0) g/dL Globulin 4.9 H (2.4-3.5) g/dL Albumin/Globulin Ratio 0.7 L (1.1-2.2) Lipase < 10 (8-78) Units/L Urine Color (Yellow) Urine Clarity (Clear) Urine pH (5.0-8.0) pH Units Ur Specific [place] (1.010-1.025) Urine Protein (Neg-Trace) mg/dL Urine Glucose (UA) (Normal) mg/dL Urine Ketones (Negative) mg/dL Urine Blood (Negative) Urine Nitrite (Negative) Urine Bilirubin (Negative) Urine Urobilinogen (Normal) mg/dL Ur Leukocyte Esterase (Negative) Urine Microscopic RBC (0-3) per hpf Urine Microscopic WBC (0-3) per hpf Ur Squamous Epith Cells (None-Few) per lpf Urine Bacteria (None-Few) per hpf Hyaline Casts (None-Few) per lpf Ur Culture Indicated? (NO) Specimen Rejected 11/12/16 Range/Units 20:33 WBC (4.3-11.1) K/mcL RBC (3.82-4.97) M/mcL Hgb (11.5-15.4) g/dL Hct (35.3-44.9) % MCV (83.0-100.0) fL MCH (28.0-33.3) pg MCHC (31.6-35.5) g/dL RDW (11.5-14.5) % Plt Count (140-400) K/mcL MPV (9.4-12.4) fL Immature Gran % (0-4) % Seg Neutrophils % % Lymphocytes % % Monocytes % % Eosinophils % % Basophils % % Neutrophils # (1.6-8.9) K/mcL Lymphocytes # (0.6-4.6) K/mcL Monocytes # (0.0-1.3) K/mcL Eosinophils # (0.0-0.6) K/mcL Basophils # (0.0-0.2) K/mcL Immature Plt Fraction (1.1-6.1) % PT (9.4-12.1) Seconds INR APTT (26.0-36.0) Seconds Sodium (136-145) mEq/L Potassium (3.5-4.5) mEq/L Chloride (98-109) mEq/L Carbon Dioxide (19-29) mEq/L BUN (7-20) mg/dL Creatinine (0.57-1.11) mg/dL Est GFR ( Amer) (> 60) Est GFR (Non-Af Amer) (> 60) BUN/Creatinine Ratio (6-26) Glucose (70-99) mg/dL Calculated Osmolality (280-300) Lactic Acid (0.5-2.2) mmol/L Calcium (8.6-10.8) mg/dL Total Bilirubin (0.2-1.2) mg/dL Direct Bilirubin (0.0-0.5) mg/dL Indirect Bilirubin (0.0-1.2) mg/dL AST (5-34) Units/L ALT (0-55) Units/L Alkaline Phosphatase (38-126) Units/L Troponin I 0.01 (0-0.03) ng/mL Serum Total Protein (6.0-8.3) g/dL Albumin (3.5-5.0) g/dL Globulin (2.4-3.5) g/dL Albumin/Globulin Ratio (1.1-2.2) Lipase (8-78) Units/L Urine Color (Yellow) Urine Clarity (Clear) Urine pH (5.0-8.0) pH Units Ur Specific [place] (1.010-1.025) Urine Protein (Neg-Trace) mg/dL Urine Glucose (UA) (Normal) mg/dL Urine Ketones (Negative) mg/dL Urine Blood (Negative) Urine Nitrite (Negative) Urine Bilirubin (Negative) Urine Urobilinogen (Normal) mg/dL Ur Leukocyte Esterase (Negative) Urine Microscopic RBC (0-3) per hpf Urine Microscopic WBC (0-3) per hpf Ur Squamous Epith Cells (None-Few) per lpf Urine Bacteria (None-Few) per hpf Hyaline Casts (None-Few) per lpf Ur Culture Indicated? (NO) Specimen Rejected - EKG Data EKG attestation: Yes I reviewed and interpreted this EKG. EKG results narrative: NSR with rate of 74. NO STEMI. normal interals. no change from 10/03/16. 193
[2016-11-12 20:41] LABS: Basophils % 0.1 %; Eosinophils % 0.1 %; Hematocrit 39.8 % (35.3-44.9); Hemoglobin 12.6 g/dL (11.5-15.4); Immature Granulocytes % 0.3 % (0-4); Immature Platelets 2.8 % (1.1-6.1); Lymphocytes # 0.8 K/mcL (0.6-4.6); Lymphocytes % 8.4 %; Mean Corpuscular HGB Conc 31.7 g/dL (31.6-35.5); Mean Corpuscular Hemoglobin 30.4 pg (28.0-33.3); Mean Corpuscular Volume 95.9 fL (83.0-100.0); Mean Platelet Volume 9.6 fL (9.4-12.4); Monocytes # 0.4 K/mcL (0.0-1.3); Monocytes % 4.5 %; Platelet Count 208 K/mcL (140-400); Red Blood Count 4.15 M/mcL (3.82-4.97); Segmented Neutrophils % 86.6 %
[2016-11-12 20:53] LABS: INR 1.2; Prothrombin Time 12.8 Seconds (9.4-12.1)
[2016-11-12 20:57] LABS: Alanine Aminotransferase 12 Units/L (0-55); Albumin 3.2 g/dL (3.5-5.0); Albumin/Globulin Ratio 0.7 (1.1-2.2); Alkaline Phosphatase 69 Units/L (38-126); Aspartate Amino Transferase 19 Units/L (5-34); BUN/Creatinine Ratio 21 (6-26); Bilirubin,Direct 0.5 mg/dL (0.0-0.5); Bilirubin,Indirect 0.7 mg/dL (0.0-1.2); Bilirubin,Total 1.2 mg/dL (0.2-1.2); Blood Urea Nitrogen 15 mg/dL (7-20); Calcium 9.5 mg/dL (8.6-10.8); Carbon Dioxide 23 mEq/L (19-29); Chloride 103 mEq/L (98-109); Globulin 4.9 g/dL (2.4-3.5); Glucose 132 mg/dL (70-99); Osmolality,Calculated 287 (280-300); Potassium 3.8 mEq/L (3.5-4.5); Sodium 137 mEq/L (136-145); Total Protein 8.1 g/dL (6.0-8.3); eGFR For African Americans > 60 (> 60); eGFR For Non-African Americans > 60 (> 60)
[2016-11-12 20:58] LABS: Lipase < 10 Units/L (8-78)
--- NOTE | 2016-11-12 23:18 | Internal Med History&Physical ---
Date of Encounter: 11/12/16 Time of Encounter: 23:14 Assessment and Plan (1) Small bowel obstruction Current visit: Yes Status: Acute Conservative management with nothing by mouth, IV fluids. Patient not exhibiting much nausea and vomiting and therefore NGT placement has been on hold Surgery consult in the a.m (2) NSTEMI (non-ST elevated myocardial infarction) Current visit: No Status: Resolved Recent history of stenting suspect drug eluting stent. Continue dual antiplatelet therapy given risk for thrombosis if Plavix and aspirin were discontinued (3) CAD (coronary artery disease), [place] coronary artery Current visit: No Status: Chronic Stable. management above Qualifiers: [place] vs. transplanted heart: [place] heart Associated angina: without angina Qualified Code(s): I25.10 - Atherosclerotic heart disease of [place] coronary artery without angina pectoris (4) HTN (hypertension) Current visit: No Status: Chronic Stable Qualifiers: Hypertension type: essential hypertension Qualified Code(s): I10 - Essential (primary) hypertension Internal Medicine - H&P: HPI Chief complaint: Abdominal pain, nausea, vomiting History of present illness: Ms. France is a 86 year old female who presents with acute onset Abdominal pain , nausea, vomiting. CT imaging found small bowel obstruction. She reports acute onset of left lower quadrant abdominal pain, localized, no radiation, worse pain in her life, 10 out of 10, associated with nausea or emesis described as brownish greenish output 3. She reports having a small bowel movement shortly after 4 PM. She does have a history of colonic resection secondary to diverticular disease. Given the CT findings of small bowel obstruction, ED discussed the case with Dr. Goodwin of general surgery who will consult on the patient tomorrow. Review of medical history confirms history of hypertension, hyperlipidemia. Off note she reports having a "small heart attack" in October 2016 and has been placed on dual antiplatelet therapy for stents at that time. CT/CT abd pelvis w iv no oral IMPRESSION: 1. Findings of acute small bowel obstruction with tapering in the right lower quadrant. This may represent a partial, early complete, or intermittently current obstruction. 2. Stable left adrenal nodule, which is likely benign given lack of interval change since 2012. 3. Colonic diverticulosis. Past Med Surg Social Fam HX - Past Medical History Medical history: hyperlipidemia, hypertension, myocardial infarction Psychiatric history: no psych history - Past Surgical History Surgical History: non-contributory - Social History Smoking Status: Never smoker Smokeless Tobacco Status: No Alcohol use: none Drug use: unknown Internal Medicine - H&P: Meds Multivitamin [Multi-Day Vitamins] 1 each PO DAILY 10/03/16 [History] Aspirin Enteric Coated [Aspirin EC] 81 mg PO DAILY #30 tab 10/05/16 [Rx] Atenolol [Tenormin] 12.5 mg PO DAILY tab 10/05/16 [Rx] Atorvastatin [Lipitor] 40 mg PO HS #30 tab 10/05/16 [Rx] Clopidogrel [Plavix] 75 mg PO DAILY #90 tablet 10/05/16 [Rx] Omeprazole [PriLOSEC] 20 mg PO QPM 11/12/16 [History] 3 Allergy/AdvReac Type Severity Reaction Status Date / Time Amoxicillin Allergy Hives Verified 11/12/16 19:31 All Systems PM: A 10-system review of systems was performed and is negative for pertinent findings except as documented above in the HPI. Review of systems: ROS 14 point review of systems reviewed as best as possible given presentation. Pertinent positive or negative as per HPI or otherwise reviewed as negative - Constitutional Vitals: Temp Pulse Resp BP Pulse Ox 98 F 78 18 143/100 97 11/12/16 19:25 11/12/16 21:49 11/12/16 22:41 11/12/16 22:41 11/12/16 21:49 Exam: General - AAO x 3 Psych - Appropriate affect/speech. No agitation Eyes - ELIZABET. Eye lids intact. No scleral icterus Heart - Sinus. RRR. S1 and S2 present. No added HS/murmurs appreciated. No elevated JVD appreciated. No calf swellings/erythema Lung - Adequate air entry b/l, No crackles/wheezes appreciated GI - left lower quadrant tenderness, no guarding or rigidity. No hepatosplenomegaly/ascites. BS+ - No CVA/suprapubic tenderness or palpable bladder distension Skin - Intact. No rash/petechiae/ecchymosis. Warm extremities MSK - Joints with normal ROM. No joint swellings Internal Med - H&P Results - Labs CBC & Chem 7: 11/12/16 20:33 11/12/16 20:33
[2016-11-12] MEDS ORDERED: Naloxone 0.4 MG/ML INJ IVP PRN (23:23)
[2016-11-13] MEDS: Ringers Solution, Lactated 1,000 ML IVC SCH ×3 (00:03→20:11)
[2016-11-13] MEDS: *HR* Enoxaparin 30 MG/0.3 ML SYRINGE SQ SCH (05:55)
[2016-11-13] MEDS: Pantoprazole 40 MG VIAL IVP SCH (05:55)
[2016-11-13 06:01] LABS: BUN/Creatinine Ratio 22 (6-26); Blood Urea Nitrogen 15 mg/dL (7-20); Calcium 8.6 mg/dL (8.6-10.8); Carbon Dioxide 26 mEq/L (19-29); Chloride 107 mEq/L (98-109); Glucose 86 mg/dL (70-99); Osmolality,Calculated 292 (280-300); Potassium 3.9 mEq/L (3.5-4.5); Sodium 141 mEq/L (136-145); eGFR For African Americans > 60 (> 60); eGFR For Non-African Americans > 60 (> 60)
[2016-11-13 06:04] LABS: Basophils % 0.2 %; Eosinophils # 0.1 K/mcL (0.0-0.6); Eosinophils % 1.9 %; Hematocrit 34.3 % (35.3-44.9); Immature Granulocytes % 0.3 % (0-4); Lymphocytes # 1.4 K/mcL (0.6-4.6); Lymphocytes % 21.7 %; Mean Corpuscular HGB Conc 32.1 g/dL (31.6-35.5); Mean Corpuscular Hemoglobin 31.3 pg (28.0-33.3); Mean Corpuscular Volume 97.7 fL (83.0-100.0); Mean Platelet Volume 9.9 fL (9.4-12.4); Monocytes # 0.6 K/mcL (0.0-1.3); Monocytes % 9.1 %; Neutrophils # 4.3 K/mcL (1.6-8.9); Platelet Count 180 K/mcL (140-400); Red Blood Count 3.51 M/mcL (3.82-4.97); Red Cell Distribution Width 15.3 % (11.5-14.5); Segmented Neutrophils % 66.8 %
[2016-11-13] MEDS: Aspirin Enteric Coated 81 MG Tablet PO SCH (08:37)
--- NOTE | 2016-11-13 08:39 | Internal Med Progress Note ---
<LaurieelishaDerrell cortez - Last Filed: 11/13/16 09:40> Date of Encounter: 11/13/16 Time of Encounter: 08:39 - Assessment and plan (1) Small bowel obstruction Current Visit: Yes Status: Acute Assessment and plan: Patient presented with nausea and vomiting since 16:30pm 11/12/[address] abdomen/pelvis revealed acute sbo in RLQ, stable L adrenal nodule, and colonic diverticulosis without diverticulitis. Patient has not needed NG tube placemen since arrival, nausea and vomiting well controlled with zofran prn. Patient continues to report some mild LLQ pain with deep palpation, uncertain as this does not correlate with the sbo and patient denies constipation or problems related to. Lactic acid 1.8, 1.3 -Surgery consulted -Continue NPO -Zofran prn -May consider advancing to clear liquid diet later today, if tolerated may continue advancing. (2) CAD (coronary artery disease), [place] coronary artery Current Visit: Yes Status: Chronic Assessment and plan: Patient with known history of CAD s/o stent placement in October 2016 Troponin 0.01 -Continue DAPT, asa, plavix, and atenolol Qualifiers: [place] vs. transplanted heart: [place] heart Associated angina: without angina Qualified Code(s): I25.10 - Atherosclerotic heart disease of [place] coronary artery without angina pectoris (3) HTN (hypertension) Current Visit: Yes Status: Chronic Assessment and plan: Known history of hypertension Bp elevated on arrival to 140-160s systolic. Bp currently 104/53, rate 66 -Continue atenolol. -Continue monitoring vitals. -Consider follow up with PCP regarding htn therapy. Qualifiers: Hypertension type: essential hypertension Qualified Code(s): I10 - Essential (primary) hypertension (4) DVT prophylaxis Current Visit: Yes Status: Acute Assessment and plan: Continue lovenox for dvt ppx - Subjective Interval history: Patient reports doing better this morning since admission. Reports that she did not vomit up three times in the ED like it was reported, she did report vomiting up once just outside the ED. Patient reports no additional vomitus since admission, well controlled nausea with zofran. Patient reports she has had 2 small bowel movements overnight that were normal firm. Patient reports she continues to have mild but improving left abdominal tenderness with deep palpation. Denies fevers, chills, sweats, vomiting, chest pain, shortness of breath, constipation, diarrhea, changes in urination, dysuria, weakness, or loss of sensation. Reports that her 's showing/ begins about noon time tomorrow. - Constitutional Vitals: Temp Pulse Resp BP Pulse Ox 98.2 F 66 14 104/53 96 11/13/16 07:21 11/13/16 07:21 11/13/16 07:21 11/13/16 07:21 11/13/16 07:21 General appearance: Present: cooperative, A&O X 3, pleasant, no acute distress, answers questions appropriately - Head Head exam: Present: atraumatic, normal inspection, normocephalic - Eye Eye exam: Present: EOMI, normal appearance - ENT ENT exam: Present: mucous membranes moist, normal exam, normal oropharynx - Neck Neck exam general surgery: Present: full ROM, normal inspection, trachea midline - Respiratory Respiratory exam: Present: CTAB. Absent: rales, respiratory distress, rhonchi, wheezes, tachypnea - Cardiovascular Cardiovascular exam: Present: RRR, +S1, +S2. Absent: diastolic murmur, JVD, systolic murmur - GI/Abdominal GI/Abdominal exam: Present: normal bowel sounds, soft, tenderness (mild LLQ tenderness with deep palpation). Absent: distended, guarding - Extremities Exam Extremities exam: Present: full ROM, normal capillary refill, normal inspection , warm, radial pulses palpable and symmetrical. Absent: pedal edema, tenderness - Neurological Exam Neurological exam: Present: alert, oriented X3, no focal deficits, strengths equal and symetr throughout. Absent: motor sensory deficit, facial droop, speech deficit - Psychiatric Psychiatric exam: Present: normal affect, normal mood - Skin Skin exam: Present: dry, intact, normal color, warm. Absent: rash Internal Medicine: Result - Labs CBC & Chem 7: 11/13/16 05:38 11/13/16 05:38 Labs: Short CBC 11/13/16 Range/Units 05:38 WBC 6.4 (4.3-11.1) K/mcL Hgb 11.0 L D (11.5-15.4) g/dL Hct 34.3 L (35.3-44.9) % Plt Count 180 (140-400) K/mcL Neutrophils # 4.3 (1.6-8.9) K/mcL [facility] 11/13/16 05:38 Sodium 141 Potassium 3.9 Chloride 107 Carbon Dioxide 26 BUN 15 Creatinine 0.67 Glucose 86 Calcium 8.6 - ABG Interpretation ABG results: PT/INR, D-dimer PT 12.8 Seconds (9.4-12.1) H 11/12/16 20:33 Consult Discharge Plan - Plan Referrals: Fernanda Gaines MD [Primary Care Provider] - <Eric Rubin H - Last Filed: 11/13/16 09:53> Date of Encounter: 11/13/16 - Constitutional Vitals: Temp Pulse Resp BP Pulse Ox 98.2 F 66 14 104/53 96 11/13/16 07:21 11/13/16 07:21 11/13/16 07:21 11/13/16 07:21 11/13/16 07:21 Internal Medicine: Result - Labs CBC & Chem 7: 11/13/16 05:38 11/13/16 05:38 Labs: Short CBC 11/13/16 Range/Units 05:38 WBC 6.4 (4.3-11.1) K/mcL Hgb 11.0 L D (11.5-15.4) g/dL Hct 34.3 L (35.3-44.9) % Plt Count 180 (140-400) K/mcL Neutrophils # 4.3 (1.6-8.9) K/mcL [facility] 11/13/16 05:38 Sodium 141 Potassium 3.9 Chloride 107 Carbon Dioxide 26 BUN 15 Creatinine 0.67 Glucose 86 Calcium 8.6 - ABG Interpretation ABG results: PT/INR, D-dimer PT 12.8 Seconds (9.4-12.1) H 11/12/16 20:33 - Attending Attestation feeling better. Had 2 BMs last night. Advance diet to full liquids. may discontinue IVF if tolerating diet. No need of NG tube for now Cancel Surgery consult I examined this patient and my medical decision-making was reviewed with the Resident Physician. I agree with the documented findings, disposition and treatment plan as described except to the extent set forth below.
--- NOTE | 2016-11-13 14:25 | Electrocardiograph Report ---
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
[2016-11-14 04:42] VITALS: BP 144/87
[2016-11-14] MEDS: Pantoprazole 40 MG VIAL IVP SCH (04:56)
[2016-11-14] MEDS: *HR* Enoxaparin 30 MG/0.3 ML SYRINGE SQ SCH (05:41)
--- NOTE | 2016-11-14 06:50 | Discharge Summary ---
<Derrell Falcon - Last Filed: 11/14/16 06:47> Date of Encounter: 11/14/16 Time of Encounter: 06:47 - Discharge Diagnosis (1) Small bowel obstruction Priority: Primary Status: Acute (2) CAD (coronary artery disease), [place] coronary artery Priority: Secondary Status: Chronic Qualifiers: [place] vs. transplanted heart: [place]all heart Associated angina: without angina Qualified Code(s): I25.10 - Atherosclerotic heart disease of [place] coronary artery without angina pectoris (3) HTN (hypertension) Priority: Secondary Status: Chronic Qualifiers: Hypertension type: essential hypertension Qualified Code(s): I10 - Essential (primary) hypertension - Discharge Medications Home Medications: Multivitamin [Multi-Day Vitamins] 1 each PO DAILY 10/03/16 [History] Aspirin Enteric Coated [Aspirin EC] 81 mg PO DAILY #30 tab 10/05/16 [Rx] Atenolol [Tenormin] 12.5 mg PO DAILY tab 10/05/16 [Rx] Atorvastatin [Lipitor] 40 mg PO HS #30 tab 10/05/16 [Rx] Clopidogrel [Plavix] 75 mg PO DAILY #90 tablet 10/05/16 [Rx] Omeprazole [PriLOSEC] 20 mg PO QPM 11/12/16 [History] Allergies/Adverse Reactions: 3 Allergy/AdvReac Type Severity Reaction Status Date / Time Amoxicillin Allergy Hives Verified 11/12/16 19:31 Date of admission: 11/13/16 00:37 Primary care physician: Fernanda Gaines, Discharging clinician: Eric Rubin ([facility]) Anticipated date of discharge: 11/14/16 - Patient Status Disposition: Home, Self-Care Condition: Good Functional capacity at discharge: uses cane/walker Overall status at discharge: patient is progressing back to baseline - Discharge Instructions Follow Up With: Jerri Antonio, DISTRICT COURT JUDGE [Advanced Practice Nurse] - 11/21/16 2:00 pm - Diet and Activity Activity: ambulate only with your walker, increase activity as tolerated Diet: low fat, low cholesterol, low salt diet Interval History: Patient reports doing well overnight, had an additional bowel movement. Patient reports mild achy pain over her left hip, not abdomen today. Patient denies nausea, vomiting, and reports tolerating food overnight without difficulty. Patient denies fevers, chills, sweat, nausea, vomiting, chest pain , shortness of breath, abdominal pain, changes in bowels, diarrhea, constipation , changes in urination, dysuria, weakness, or loss of sensation. Hospital course: Mr. France is an 86 year old female with history of CAD s/p stent 10/2016, hypertension, and hyperlipidemia who presented to the ED on 11/12/16 with complaints of nausea, vomiting x 6 times prior to arrival that started around early evening, and left sided abdominal pain. CT abdomen/pelvis revealed findings of acute small bowel obstruction with tapering in the right lower quadrant, stable left adrenal nodule, and colonic diverticulosis without diverticulitis. Patient was administered Zofran and NPO diet overnight. Patient did well overnight and did not require NG tube and did not have nausea or vomiting since admission. On 11/13/16 morning the patient still complained of having mild but improving left lower quadrant pain, but overnight has 2 bowel movements. Patient denied history of constipation or straining with bowel movements and reported daily bowel movements that were normal caliber and consistency. Due to improving status not requiring ng tube, Surgery consult was cancelled. Patients diet was successfully advanced. Patient was seen on and had no complaints other than some achiness of left hip, no abdominal pain, nausea, vomiting, and had 1 bowel movement overnight. Patient to be discharged home and to follow up with PCP within 3-5 days regarding this admission. - Time Spent with Patient Total time spent providing and/or coordinating discharge services: - Constitutional Vitals: Temp Pulse Resp BP Pulse Ox 98.2 F 71 14 144/87 96 11/14/16 04:40 11/14/16 04:40 11/14/16 04:40 11/14/16 04:40 11/14/16 04:40 General appearance: Present: cooperative, A&O X 3, pleasant, no acute distress, answers questions appropriately - Head Head exam: Present: atraumatic, normal inspection, normocephalic - Eye Eye exam: Present: EOMI, normal appearance - ENT ENT exam: Present: mucous membranes moist, normal exam, normal oropharynx - Neck Neck exam general surgery: Present: full ROM, normal inspection, supple, trachea midline. Absent: tenderness - Respiratory Respiratory exam: Present: CTAB. Absent: rales, rhonchi, wheezes - Cardiovascular Cardiovascular exam: Present: RRR, +S1, +S2. Absent: diastolic murmur, JVD, systolic murmur - GI/Abdominal GI/Abdominal exam: Present: normal bowel sounds, soft. Absent: distended, guarding, tenderness - Extremities Exam Extremities exam: Present: full ROM, normal inspection, warm, radial pulses palpable and symmetrical. Absent: pedal edema, tenderness Additional comments: minimal to mild left hip pain with deep palpation. - Neurological Exam Neurological exam: Present: alert, CN II-XII intact, normal gait, oriented X3, no focal deficits, strengths equal and symetr throughout. Absent: facial droop , speech deficit - Psychiatric Psychiatric exam: Present: normal affect, normal mood - Skin Skin exam: Present: dry, intact, normal color, warm. Absent: rash <Eric Rubin H - Last Filed: 11/14/16 07:55> Date of Encounter: 11/14/16 Date of admission: 11/13/16 00:37 Primary care physician: Fernanda Gaines, Hospital course: Ms. France is a 86 year old female - Time Spent with Patient Total time spent providing and/or coordinating discharge services: - Constitutional Vitals: Temp Pulse Resp BP Pulse Ox 98.2 F 71 14 144/87 96 11/14/16 04:40 11/14/16 04:40 11/14/16 04:40 11/14/16 04:40 11/14/16 04:40 - Attending Attestation HLD , stable Discharge later today. Time spent: 36 min I examined this patient and my medical decision-making was reviewed with the Resident Physician. I agree with the documented findings, disposition and treatment plan as described except to the extent set forth below.
[2016-11-14] MEDS: Aspirin Enteric Coated 81 MG Tablet PO SCH (07:41)
[2016-11-14 07:56] LABS: BUN/Creatinine Ratio 12 (6-26); Blood Urea Nitrogen 9 mg/dL (7-20); Calcium 9.2 mg/dL (8.6-10.8); Carbon Dioxide 29 mEq/L (19-29); Chloride 105 mEq/L (98-109); Glucose 88 mg/dL (70-99); Osmolality,Calculated 288 (280-300); Potassium 4.1 mEq/L (3.5-4.5); Sodium 140 mEq/L (136-145); eGFR For African Americans > 60 (> 60); eGFR For Non-African Americans > 60 (> 60)
[2016-11-14 08:49] LABS: Eosinophils # 0.2 K/mcL (0.0-0.6); Eosinophils % 2.7 %; Hematocrit 38.9 % (35.3-44.9); Hemoglobin 12.1 g/dL (11.5-15.4); Immature Granulocytes % 0.3 % (0-4); Lymphocytes # 2.4 K/mcL (0.6-4.6); Lymphocytes % 38.8 %; Mean Corpuscular HGB Conc 31.1 g/dL (31.6-35.5); Mean Corpuscular Hemoglobin 30.2 pg (28.0-33.3); Mean Platelet Volume 10.4 fL (9.4-12.4); Monocytes # 0.4 K/mcL (0.0-1.3); Monocytes % 5.7 %; Neutrophils # 3.3 K/mcL (1.6-8.9); Platelet Count 193 K/mcL (140-400); Red Blood Count 4.01 M/mcL (3.82-4.97); Red Cell Distribution Width 15.2 % (11.5-14.5); Segmented Neutrophils % 52.5 %
== END 2016-11-14 08:10 | disposition home or self-care (01) | DRG 390 ==
LOC: EMEROO 19:18 → 3ANU 19:18 → SUATTDRO 11-13 00:37
PROVIDERS: ADMIT Family Medicine; ATTEND Internal Medicine